=== PATIENT | female | born 1960 | race Caucasian/White ===

== ENCOUNTER 2018-04-14 10:13 | Observation (INO) ==
[2018-04-14] MEDS ORDERED: ALBUTEROL/IPRATROPIUM 3 ML NEB RESP TX STA (10:45)
[2018-04-14] MEDS ORDERED: methylPREDNISolone SOD SUC 125 MG/2 ML VIAL IV STA (10:45)
[2018-04-14] MEDS ORDERED: traZODone 50 MG TABLET PO PRN (13:46)
[2018-04-14] MEDS ORDERED: PROMETHAZINE 25 MG/1 ML VIAL IM PRN (13:46)
[2018-04-14] MEDS ORDERED: PROMETHAZINE 25 MG TABLET PO PRN (13:46)
[2018-04-14] MEDS ORDERED: NICOTINE 21 MG/24 HR PATCH TRANSDERM PRN (13:46)
[2018-04-14] MEDS ORDERED: PANTOPRAZOLE 40 MG TABLET PO SCH (14:00)
[2018-04-14 14:06] LABS: Basophils # 0.1 10*3/uL (0.0-0.2); Basophils % 0.6 % (0.0-0.8); Eosinophils # 0.5 10*3/uL (0.0-0.87); Eosinophils % 5.6 % (0.00-10.9); Hematocrit 41.5 VOL% (35.7-47.0); Hemoglobin 14.4 GM/DL (12.0-16.0); Immature Granulocytes % 0.9 %; Immature Granulocytes Absolute 0.07 #; Lymphocytes # 1.9 10*3/uL (1.4-4.0); Lymphocytes % 23.8 % (21.3-54.2); Mean Corpuscular HGB Conc 34.7 GM/DL (32-36); Mean Corpuscular Hemoglobin 35 PG (27-34); Mean Corpuscular Volume 100.5 FL (87-102); Mean Platelet Volume 10.2 FL (9.6-12.0); Monocytes # 0.7 10*3/uL (0.11-0.8); Monocytes % 8.5 % (1.7-12.7); Neutrophils # 4.8 10*3/uL (1.4-7.4); Neutrophils % 60.6 % (38.7-73.9); Platelet Count 286 T/CUMM (130-400); Red Blood Count 4.13 MC/CUMM (3.8-5.5); Red Cell Distribution Width 12.3 % (9.3-17.3)
[2018-04-14 14:24] LABS: Bilirubin,Total 0.4 MG/DL (0.2-1.0); Calcium 8.9 MG/DL (8.5-10.1); Osmolality,Calculated 256.9 MOS/KG (273-304); Potassium 3.7 MMOL/L (3.5-5.1); Thyroid Stimulating Hormone 1.97 uIU/ml (0.358-3.74); Total Protein 7.8 G/DL (6.4-8.3)
[2018-04-14] MEDS: guaiFENesin/DM ER 600-30 MG TABLET PO SCH ×2 (15:08→21:28)
[2018-04-14] MEDS: SODIUM CHLORIDE 0.9% 1,000 ML IV SCH (15:08)
[2018-04-14] MEDS: LEVOFLOXACIN 500 MG TABLET PO SCH (15:08)
[2018-04-14 15:31] LABS: Folate 14.6 NG/ML (5.4-24.0)
[2018-04-14] MEDS: ONDANSETRON 4 MG/2 ML VIAL IV PRN (15:33)
[2018-04-14] MEDS: NICOTINE 21 MG/24 HR PATCH TRANSDERM SCH (17:04)
[2018-04-14] MEDS: methylPREDNISolone SOD SUC 40 MG/1 ML VIAL IV SCH (17:04)
[2018-04-14] MEDS ORDERED: ALBUTEROL/IPRATROPIUM 3 ML NEB RESP TX SCH (19:00)
[2018-04-14] MEDS: ALBUTEROL/IPRATROPIUM 3 ML NEB RESP TX SCH ×2 (19:25→22:52)
[2018-04-14] MEDS ORDERED: ACETAMINOPHEN 325 MG TABLET PO PRN (20:38)
[2018-04-14] MEDS ORDERED: IBUPROFEN 800 MG TABLET PO PRN (20:41)
[2018-04-14] MEDS ORDERED: buPROPion 75 MG TABLET PO SCH (21:00)
[2018-04-14] MEDS ORDERED: ROSUVASTATIN 20 MG TABLET PO SCH (21:00)
[2018-04-14] MEDS: BUDESONIDE/FORMOTEROL 160-4.5 INHALER 6 GM INH SCH (21:25)
[2018-04-14] MEDS: PANTOPRAZOLE 40 MG TABLET PO SCH (21:26)
[2018-04-14] MEDS: clonazePAM 0.5 MG TABLET PO SCH (21:26)
[2018-04-14] MEDS: DOCUSATE/SENNA 50-8.6 MG TABLET PO SCH (21:27)
[2018-04-14] MEDS: BENZONATATE 100 MG CAPSULE PO SCH (21:27)
[2018-04-14] MEDS: TICAGRELOR 90 MG TABLET PO SCH (21:28)
[2018-04-14] MEDS: CARVEDILOL 6.25 MG TABLET PO SCH (21:29)
[2018-04-15] MEDS: methylPREDNISolone SOD SUC 40 MG/1 ML VIAL IV SCH ×3 (01:05→09:18)
[2018-04-15] MEDS: ALBUTEROL/IPRATROPIUM 3 ML NEB RESP TX SCH ×3 (02:26→11:10)
[2018-04-15] MEDS: SODIUM CHLORIDE 0.9% 1,000 ML IV SCH (04:05)
[2018-04-15] MEDS: ONDANSETRON 4 MG/2 ML VIAL IV PRN (06:35)
[2018-04-15 07:04] LABS: Basophils % 0.2 % (0.0-0.8); Hemoglobin 12.3 GM/DL (12.0-16.0); Immature Granulocytes % 0.9 %; Lymphocytes # 0.9 10*3/uL (1.4-4.0); Lymphocytes % 7.9 % (21.3-54.2); Mean Corpuscular HGB Conc 34.2 GM/DL (32-36); Mean Corpuscular Hemoglobin 34 PG (27-34); Mean Corpuscular Volume 100.3 FL (87-102); Mean Platelet Volume 9.9 FL (9.6-12.0); Monocytes # 0.2 10*3/uL (0.11-0.8); Monocytes % 1.8 % (1.7-12.7); Neutrophils # 10.1 10*3/uL (1.4-7.4); Neutrophils % 89.2 % (38.7-73.9); Platelet Count 267 T/CUMM (130-400); Red Blood Count 3.59 MC/CUMM (3.8-5.5); Red Cell Distribution Width 12.2 % (9.3-17.3); White Blood Count 11.3 T/CUMM (4-12)
[2018-04-15 07:29] LABS: Calcium 8.1 MG/DL (8.5-10.1); Osmolality,Calculated 267.5 MOS/KG (273-304); Potassium 3.5 MMOL/L (3.5-5.1)
[2018-04-15 07:34] LABS: Ferritin 78.9 ng/ml (8-252)
[2018-04-15 07:40] LABS: Folate 13.7 NG/ML (5.4-24.0); Vitamin B12 981 PG/ML (211-911)
[2018-04-15 08:07] LABS: Sedimentation Rate-Westergren 40 MM/HR (0-30)
[2018-04-15] MEDS ORDERED: PROMETHAZINE 25 MG/1 ML VIAL IM ONE (08:21)
[2018-04-15] MEDS ORDERED: ESTRADIOL 2 MG TABLET PO SCH (09:00)
[2018-04-15] MEDS ORDERED: hydroCHLOROthiazide 25 MG TABLET PO SCH (09:00)
[2018-04-15] MEDS ORDERED: NON-FORMULARY MEDICATION (Fluticasone/Vilanterol [Breo Ellipta 100-25 Mcg Inh] 1 PUFF) INH SCH (09:00)
[2018-04-15] MEDS ORDERED: ASPIRIN EC 81 MG TABLET PO SCH (09:00)
[2018-04-15] MEDS ORDERED: LISINOPRIL 20 MG TABLET PO SCH (09:00)
[2018-04-15] MEDS: NICOTINE 21 MG/24 HR PATCH TRANSDERM SCH (09:17)
[2018-04-15] MEDS: TICAGRELOR 90 MG TABLET PO SCH (09:17)
[2018-04-15] MEDS: guaiFENesin/DM ER 600-30 MG TABLET PO SCH (09:17)
[2018-04-15] MEDS: DOCUSATE/SENNA 50-8.6 MG TABLET PO SCH (09:17)
[2018-04-15] MEDS: PANTOPRAZOLE 40 MG TABLET PO SCH (09:17)
[2018-04-15] MEDS: clonazePAM 0.5 MG TABLET PO SCH (09:17)
[2018-04-15] MEDS: LEVOFLOXACIN 500 MG TABLET PO SCH (09:17)
[2018-04-15] MEDS: CARVEDILOL 6.25 MG TABLET PO SCH (09:19)
[2018-04-15] MEDS: BUDESONIDE/FORMOTEROL 160-4.5 INHALER 6 GM INH SCH (09:19)
[2018-04-15] MEDS: BENZONATATE 100 MG CAPSULE PO SCH (09:20)
[2018-04-15 12:40] VITALS: BP 124/71
== END 2018-04-15 13:29 | disposition home health service (06) ==
LOC: EDBD → EDUNIT# → N.ED 10:13 → N.EDINP 10:13 → N.5E 14:18
PROVIDERS: ADMIT Hospitalist; ATTEND Hospitalist

== ENCOUNTER 2020-12-31 08:33 | Inpatient (IN) ==
[2020-12-31 09:13] LABS: Basophils % 0.4 % (0.0-0.8); Eosinophils # 0.1 10*3/uL (0.0-0.87); Eosinophils % 0.9 % (0.00-10.9); Hematocrit 42.2 VOL% (35.7-47.0); Hemoglobin 15.3 GM/DL (12.0-16.0); Immature Granulocytes % 0.7 %; Immature Granulocytes Absolute 0.07 #; Lymphocytes # 1.2 10*3/uL (1.4-4.0); Lymphocytes % 12.1 % (21.3-54.2); Mean Corpuscular HGB Conc 36.3 GM/DL (32-36); Mean Corpuscular Volume 98.4 FL (87-102); Mean Platelet Volume 9.9 FL (9.6-12.0); Monocytes % 6.1 % (1.7-12.7); Neutrophils % 79.8 % (38.7-73.9); Platelet Count 219 T/CUMM (130-400); Red Blood Count 4.29 MC/CUMM (3.8-5.5); Red Cell Distribution Width 12.7 % (9.3-17.3); White Blood Count 9.9 T/CUMM (4-12)
[2020-12-31 09:28] LABS: Albumin 4.5 G/DL (3.4-5.0); Bilirubin,Total 0.5 MG/DL (0.20-1.00); Osmolality,Calculated 239.2 MOS/KG (273-304); Potassium 4.1 MMOL/L (3.5-5.1); Total Protein 7.8 G/DL (6.4-8.2)
[2020-12-31 09:58] LABS: Bacteria,Urine Occasional /HPF (Few); Bilirubin,Urine Negative (Negative); Blood, Urine Moderate mg/dL (Negative); Glucose,Urine (UA) Negative (Negative); Hyaline Casts,Urine 10 /LPF (0-3); Ketones,Urine Negative (Negative); Mucus,Urine Occasional /LPF (Occasional); Nitrite,Urine Negative (Negative); Protein,Urine Negative; RBC,Urine 2 /HPF (0-4); Squamous Epithelial Cell,Urine Occasional /HPF (0-10); Urine Appearance CLEAR (Clear); Urine Color Yellow (Yellow); Urine Urobilinogen < 2.0 EU/DL (0.2-1.0)
[2020-12-31 10:06] LABS: Barbiturates Screen,Urine Negative (Negative); Benzodiazepines Screen,Urine Negative (Negative); Cannabinoid Screen,Urine Negative (Negative); Opiate Screen,Urine Negative (Negative); Phencyclidine Screen,Urine Negative (Negative)
[2020-12-31] MEDS ORDERED: SODIUM CHLORIDE 0.9% 1,000 ML IV STA (10:09)
[2020-12-31] MEDS ORDERED: methylPREDNISolone SOD SUC 125 MG/2 ML VIAL IV STA (10:09)
[2020-12-31] MEDS ORDERED: ALBUTEROL/IPRATROPIUM 3 ML NEB RESP TX STA (10:09)
[2020-12-31] MEDS ORDERED: KETOROLAC 30 MG/1 ML VIAL IV STA (10:09)
[2020-12-31] MEDS ORDERED: LEVOFLOXACIN INJ 500 MG/100 ML PREMIX IV STA (10:23)
[2020-12-31] MEDS ORDERED: hydrALAZINE 20 MG/1 ML VIAL IV PRN (10:37)
[2020-12-31] MEDS ORDERED: LACTULOSE 20 GM/30 ML UDCUP PO PRN (12:21)
[2020-12-31] MEDS ORDERED: ALBUTEROL/IPRATROPIUM 3 ML NEB RESP TX PRN (12:21)
[2020-12-31] MEDS ORDERED: DEXTROSE 50% 25 GM/50 ML VIAL IV PRN (12:21)
[2020-12-31] MEDS ORDERED: SIMETHICONE CHEW 125 MG TABLET PO PRN (12:21)
[2020-12-31] MEDS ORDERED: GLUCAGON 1 MG VIAL IM PRN (12:21)
[2020-12-31] MEDS: ALBUTEROL/IPRATROPIUM 3 ML NEB RESP TX SCH ×3 (14:07→23:00)
[2020-12-31] MEDS: ASPIRIN EC 81 MG TABLET PO SCH (15:05)
[2020-12-31] MEDS: ROSUVASTATIN 20 MG TABLET PO SCH (15:05)
[2020-12-31] MEDS: SODIUM CHLORIDE 0.9% 1,000 ML IV SCH (15:05)
[2020-12-31] MEDS: ENOXAPARIN 40 MG/0.4 ML SYRINGE SUBCUT SCH (15:05)
[2020-12-31] MEDS: carvediloL 6.25 MG TABLET PO SCH (15:05)
[2020-12-31] MEDS: CLOPIDOGREL 75 MG TABLET PO SCH (15:06)
[2020-12-31] MEDS: PANTOPRAZOLE 40 MG TABLET PO SCH (15:06)
[2020-12-31] MEDS: lisinopriL 20 MG TABLET PO SCH (15:06)
[2020-12-31] MEDS: KETOROLAC 30 MG/1 ML VIAL IV PRN ×2 (16:50→22:44)
[2020-12-31 17:17] LABS: Calcium 9.1 MG/DL (8.5-10.1); Osmolality,Calculated 248.6 MOS/KG (273-304)
[2020-12-31] MEDS: BUDESONIDE/FORMOTEROL 80-4.5 INHALER 6.9 GM INH SCH (17:21)
[2020-12-31] MEDS: methylPREDNISolone SOD SUC 40 MG/1 ML VIAL IV SCH ×2 (17:21→18:06)
[2020-12-31] MEDS: LEVOFLOXACIN INJ 750 MG/150 ML PREMIX IV SCH (17:21)
[2020-12-31] MEDS: NICOTINE 21 MG/24 HR PATCH TRANSDERM SCH (18:04)
[2020-12-31] MEDS: clonazePAM 0.5 MG TABLET PO PRN (18:05)
[2020-12-31] MEDS: METHOCARBAMOL 750 MG TABLET PO PRN (18:06)
[2020-12-31] MEDS: ONDANSETRON 4 MG/2 ML VIAL IV PRN (19:23)
[2020-12-31 20:57] LABS: Calcium 8.6 MG/DL (8.5-10.1); Osmolality,Calculated 253.4 MOS/KG (273-304); Potassium 4.2 MMOL/L (3.5-5.1)
[2021-01-01] MEDS: METHOCARBAMOL 750 MG TABLET PO PRN ×3 (01:06→19:31)
[2021-01-01] MEDS: methylPREDNISolone SOD SUC 40 MG/1 ML VIAL IV SCH ×4 (01:07→18:17)
[2021-01-01] MEDS: SODIUM CHLORIDE 0.9% 1,000 ML IV SCH ×4 (01:12→23:15)
[2021-01-01 01:47] LABS: Calcium 8.3 MG/DL (8.5-10.1); Osmolality,Calculated 254.4 MOS/KG (273-304); Potassium 3.5 MMOL/L (3.5-5.1)
[2021-01-01] MEDS: ALBUTEROL/IPRATROPIUM 3 ML NEB RESP TX SCH ×6 (02:50→23:00)
[2021-01-01 06:24] LABS: Basophils % 0.2 % (0.0-0.8); Hematocrit 34.5 VOL% (35.7-47.0); Hemoglobin 12.4 GM/DL (12.0-16.0); Immature Granulocytes Absolute 0.12 #; Lymphocytes # 0.5 10*3/uL (1.4-4.0); Lymphocytes % 4.3 % (21.3-54.2); Mean Corpuscular HGB Conc 35.9 GM/DL (32-36); Mean Corpuscular Volume 100.3 FL (87-102); Mean Platelet Volume 10.1 FL (9.6-12.0); Monocytes % 3.8 % (1.7-12.7); Neutrophils % 90.7 % (38.7-73.9); Platelet Count 177 T/CUMM (130-400); Red Blood Count 3.44 MC/CUMM (3.8-5.5); Red Cell Distribution Width 13.1 % (9.3-17.3); White Blood Count 12.4 T/CUMM (4-12)
[2021-01-01] MEDS: clonazePAM 0.5 MG TABLET PO PRN ×2 (06:56→18:35)
[2021-01-01] MEDS: KETOROLAC 30 MG/1 ML VIAL IV PRN ×3 (06:57→19:31)
[2021-01-01 07:01] LABS: Albumin 3.3 G/DL (3.4-5.0); Bilirubin,Total 1.3 MG/DL (0.20-1.00); Calcium 8.7 MG/DL (8.5-10.1); Osmolality,Calculated 262.7 MOS/KG (273-304); Potassium 3.2 MMOL/L (3.5-5.1); Total Protein 6.3 G/DL (6.4-8.2)
[2021-01-01 07:15] LABS: Band Neutrophils 1 % (0-10); Lymphocytes 5 % (20-55); Platelet Estimate Normal; Segmented Neutrophils 91 % (50-85); Total Cells Counted 100
[2021-01-01] MEDS: carvediloL 6.25 MG TABLET PO SCH (09:04)
[2021-01-01] MEDS: ASPIRIN EC 81 MG TABLET PO SCH (09:04)
[2021-01-01] MEDS: ROSUVASTATIN 20 MG TABLET PO SCH (09:05)
[2021-01-01] MEDS: OMEGA 3 ACID ETHYL ESTERS 1 GM CAPSULE PO SCH (09:05)
[2021-01-01 09:06] LABS: Calcium 8.5 MG/DL (8.5-10.1); Osmolality,Calculated 259.9 MOS/KG (273-304); Potassium 3.3 MMOL/L (3.5-5.1)
[2021-01-01] MEDS: CLOPIDOGREL 75 MG TABLET PO SCH (09:06)
[2021-01-01] MEDS: NICOTINE 21 MG/24 HR PATCH TRANSDERM SCH (09:06)
[2021-01-01] MEDS: lisinopriL 20 MG TABLET PO SCH (09:06)
[2021-01-01] MEDS: PANTOPRAZOLE 40 MG TABLET PO SCH (09:06)
[2021-01-01] MEDS: BUDESONIDE/FORMOTEROL 80-4.5 INHALER 6.9 GM INH SCH (09:10)
[2021-01-01] MEDS: ENOXAPARIN 40 MG/0.4 ML SYRINGE SUBCUT SCH (12:56)
[2021-01-01] MEDS: LEVOFLOXACIN INJ 750 MG/150 ML PREMIX IV SCH (13:04)
[2021-01-01] MEDS ORDERED: DEXTROMETHORPHAN ER 6 MG/ML 90 ML/BOTTLE PO PRN (15:58)
[2021-01-01] MEDS: DOCUSATE SODIUM 100 MG CAPSULE PO PRN (18:35)
[2021-01-01] MEDS: ONDANSETRON 4 MG/2 ML VIAL IV PRN (18:39)
[2021-01-02] MEDS: methylPREDNISolone SOD SUC 40 MG/1 ML VIAL IV SCH ×2 (00:26→06:03)
[2021-01-02] MEDS: ALBUTEROL/IPRATROPIUM 3 ML NEB RESP TX SCH ×6 (02:50→23:00)
[2021-01-02] MEDS: clonazePAM 0.5 MG TABLET PO PRN ×2 (06:08→17:53)
[2021-01-02] MEDS: KETOROLAC 30 MG/1 ML VIAL IV PRN ×2 (06:11→20:26)
[2021-01-02 08:51] LABS: Calcium 8.5 MG/DL (8.5-10.1); Osmolality,Calculated 269.2 MOS/KG (273-304); Potassium 3.4 MMOL/L (3.5-5.1)
[2021-01-02] MEDS: ASPIRIN EC 81 MG TABLET PO SCH (09:18)
[2021-01-02] MEDS: ROSUVASTATIN 20 MG TABLET PO SCH (09:19)
[2021-01-02] MEDS: carvediloL 6.25 MG TABLET PO SCH (09:19)
[2021-01-02] MEDS: OMEGA 3 ACID ETHYL ESTERS 1 GM CAPSULE PO SCH (09:19)
[2021-01-02] MEDS: CLOPIDOGREL 75 MG TABLET PO SCH (09:20)
[2021-01-02] MEDS: NICOTINE 21 MG/24 HR PATCH TRANSDERM SCH (09:20)
[2021-01-02] MEDS: BUDESONIDE/FORMOTEROL 80-4.5 INHALER 6.9 GM INH SCH (09:21)
[2021-01-02] MEDS: lisinopriL 20 MG TABLET PO SCH (09:21)
[2021-01-02] MEDS: PANTOPRAZOLE 40 MG TABLET PO SCH (09:21)
[2021-01-02] MEDS: predniSONE 20 MG TABLET PO SCH ×2 (09:51→20:26)
[2021-01-02] MEDS: SODIUM CHLORIDE 0.9% 1,000 ML IV SCH ×3 (09:51→21:39)
[2021-01-02] MEDS: ENOXAPARIN 40 MG/0.4 ML SYRINGE SUBCUT SCH (12:50)
[2021-01-02] MEDS: DOCUSATE SODIUM 100 MG CAPSULE PO PRN (12:51)
[2021-01-02] MEDS: LEVOFLOXACIN INJ 750 MG/150 ML PREMIX IV SCH (12:52)
[2021-01-02] MEDS: METHOCARBAMOL 750 MG TABLET PO PRN (20:26)
[2021-01-03] MEDS: ALBUTEROL/IPRATROPIUM 3 ML NEB RESP TX SCH ×3 (03:00→10:31)
[2021-01-03] MEDS: KETOROLAC 30 MG/1 ML VIAL IV PRN ×2 (03:46→14:07)
[2021-01-03] MEDS: SODIUM CHLORIDE 0.9% 1,000 ML IV SCH (03:47)
[2021-01-03 05:29] LABS: Basophils % 0.5 % (0.0-0.8); Eosinophils % 0.2 % (0.00-10.9); Hematocrit 34.3 VOL% (35.7-47.0); Hemoglobin 11.7 GM/DL (12.0-16.0); Immature Granulocytes % 1.8 %; Immature Granulocytes Absolute 0.15 #; Lymphocytes # 1.7 10*3/uL (1.4-4.0); Lymphocytes % 20.4 % (21.3-54.2); Mean Corpuscular HGB Conc 34.1 GM/DL (32-36); Mean Corpuscular Volume 105.9 FL (87-102); Monocytes % 4.6 % (1.7-12.7); Neutrophils % 72.5 % (38.7-73.9); Platelet Count 170 T/CUMM (130-400); Red Blood Count 3.24 MC/CUMM (3.8-5.5); Red Cell Distribution Width 13.6 % (9.3-17.3); White Blood Count 8.3 T/CUMM (4-12)
[2021-01-03 06:12] LABS: Calcium 7.9 MG/DL (8.5-10.1); Osmolality,Calculated 277.4 MOS/KG (273-304); Potassium 3.2 MMOL/L (3.5-5.1)
[2021-01-03] MEDS: clonazePAM 0.5 MG TABLET PO PRN (06:27)
[2021-01-03] MEDS: ASPIRIN EC 81 MG TABLET PO SCH (09:32)
[2021-01-03] MEDS: carvediloL 6.25 MG TABLET PO SCH (09:32)
[2021-01-03] MEDS: lisinopriL 20 MG TABLET PO SCH (09:33)
[2021-01-03] MEDS: OMEGA 3 ACID ETHYL ESTERS 1 GM CAPSULE PO SCH (09:33)
[2021-01-03] MEDS: predniSONE 20 MG TABLET PO SCH (09:33)
[2021-01-03] MEDS: ROSUVASTATIN 20 MG TABLET PO SCH (09:33)
[2021-01-03] MEDS: PANTOPRAZOLE 40 MG TABLET PO SCH (09:33)
[2021-01-03] MEDS: CLOPIDOGREL 75 MG TABLET PO SCH (09:33)
[2021-01-03] MEDS: BUDESONIDE/FORMOTEROL 80-4.5 INHALER 6.9 GM INH SCH (09:38)
[2021-01-03] MEDS: NICOTINE 21 MG/24 HR PATCH TRANSDERM SCH (11:19)
[2021-01-03] MEDS ORDERED: POTASSIUM CHLORIDE 20 MEQ TABLET PO ONE (11:23)
[2021-01-03] MEDS: ENOXAPARIN 40 MG/0.4 ML SYRINGE SUBCUT SCH (11:58)
[2021-01-03 12:18] VITALS: BP 106/67
[2021-01-03] MEDS: LEVOFLOXACIN INJ 750 MG/150 ML PREMIX IV SCH (12:19)
== END 2021-01-03 15:53 | disposition home health service (06) | DRG 140 ==
LOC: EDUNIT# → N.ED 08:33 → N.EDINP 12:21 → SUATTDRO 12:21 → N.3E 15:35
PROVIDERS: ADMIT Internal Medicine; ATTEND Emergency Medicine

== ENCOUNTER 2021-04-01 08:28 | Observation (INO) ==
[2021-04-01] MEDS ORDERED: PANTOPRAZOLE 40 MG VIAL IV STA (08:57)
[2021-04-01 09:19] LABS: Basophils % 0.4 % (0.0-0.8); Eosinophils % 0.4 % (0.00-10.9); Hematocrit 38.5 VOL% (35.7-47.0); Hemoglobin 14.1 GM/DL (12.0-16.0); Immature Granulocytes % 1.2 %; Immature Granulocytes Absolute 0.06 #; Lymphocytes % 18.9 % (21.3-54.2); Mean Corpuscular HGB Conc 36.6 GM/DL (32-36); Mean Platelet Volume 9.1 FL (9.6-12.0); Monocytes % 9.8 % (1.7-12.7); Neutrophils % 69.3 % (38.7-73.9); Platelet Count 193 T/CUMM (130-400); Red Blood Count 3.85 MC/CUMM (3.8-5.5)
[2021-04-01 09:59] LABS: Albumin 3.8 G/DL (3.4-5.0); Bilirubin,Total 0.6 MG/DL (0.20-1.00); Calcium 8.8 MG/DL (8.5-10.1); Osmolality,Calculated 253.1 MOS/KG (273-304); Potassium 4.1 MMOL/L (3.5-5.1); Total Protein 6.9 G/DL (6.4-8.2)
[2021-04-01] MEDS ORDERED: SODIUM CHLORIDE 0.9% 1,000 ML IV STA (10:26)
[2021-04-01] MEDS ORDERED: lisinopriL 10 MG TABLET PO STA (11:27)
[2021-04-01] MEDS: ALBUTEROL/IPRATROPIUM 3 ML NEB RESP TX SCH ×4 (12:40→23:55)
[2021-04-01] MEDS: SODIUM CHLORIDE 0.9% 1,000 ML IV SCH ×2 (12:47→20:51)
[2021-04-01] MEDS: ONDANSETRON 4 MG/2 ML VIAL IV PRN ×2 (12:49→18:48)
[2021-04-01 13:07] LABS: Bacteria,Urine Occasional /HPF (Few); Bilirubin,Urine Negative (Negative); Blood, Urine Moderate mg/dL (Negative); Glucose,Urine (UA) Negative (Negative); Ketones,Urine 5 mg/dL (Negative); Mucus,Urine Occasional /LPF (Occasional); Nitrite,Urine Negative (Negative); Protein,Urine Negative; RBC,Urine 7 /HPF (0-4); Squamous Epithelial Cell,Urine Occasional /HPF (0-10); Urine Appearance CLEAR (Clear); Urine Color Yellow (Yellow); Urine Specific Gravity 1.013 (1.001-1.035); Urine Urobilinogen < 2.0 EU/DL (0.2-1.0)
[2021-04-01] MEDS: methylPREDNISolone SOD SUC 125 MG/2 ML VIAL IV SCH ×2 (15:03→18:49)
[2021-04-01] MEDS: cefTRIAXone 1,000 MG in SODIUM CHLORIDE 0.9% 100 ML IV SCH (15:03)
[2021-04-01 16:12] LABS: Hematocrit 38.6 VOL% (35.7-47.0); Hemoglobin 13.7 GM/DL (12.0-16.0)
[2021-04-01 18:34] LABS: Hematocrit 36.8 VOL% (35.7-47.0); Hemoglobin 13.1 GM/DL (12.0-16.0)
[2021-04-01] MEDS: clonazePAM 0.5 MG TABLET PO PRN (19:43)
[2021-04-01] MEDS: PANTOPRAZOLE 40 MG VIAL IV SCH (20:44)
[2021-04-02] MEDS: methylPREDNISolone SOD SUC 125 MG/2 ML VIAL IV SCH ×2 (01:11→12:56)
[2021-04-02] MEDS: ALBUTEROL/IPRATROPIUM 3 ML NEB RESP TX SCH ×6 (03:53→23:20)
[2021-04-02 05:53] LABS: Basophils % 0.1 % (0.0-0.8); Hemoglobin 12.5 GM/DL (12.0-16.0); Immature Granulocytes % 0.8 %; Immature Granulocytes Absolute 0.06 #; Lymphocytes # 0.5 10*3/uL (1.4-4.0); Lymphocytes % 6.7 % (21.3-54.2); Mean Corpuscular HGB Conc 34.7 GM/DL (32-36); Mean Corpuscular Volume 104.3 FL (87-102); Mean Platelet Volume 9.7 FL (9.6-12.0); Monocytes % 1.4 % (1.7-12.7); Platelet Count 172 T/CUMM (130-400); Red Blood Count 3.45 MC/CUMM (3.8-5.5); Red Cell Distribution Width 12.1 % (9.3-17.3); White Blood Count 7.4 T/CUMM (4-12)
[2021-04-02 06:07] LABS: Albumin 3.1 G/DL (3.4-5.0); Bilirubin,Total 0.4 MG/DL (0.20-1.00); Calcium 8.5 MG/DL (8.5-10.1); Osmolality,Calculated 259.8 MOS/KG (273-304); Potassium 3.5 MMOL/L (3.5-5.1); Total Protein 6.2 G/DL (6.4-8.2)
[2021-04-02 06:23] LABS: Anisocytosis 2+; Band Neutrophils 8 % (0-10); Lymphocytes 5 % (20-55); Macrocytosis 1+; Platelet Estimate Normal; Segmented Neutrophils 85 % (50-85); Spherocytes Few; Total Cells Counted 100
[2021-04-02] MEDS ORDERED: LACTATED RINGERS 1,000 ML IV SCH (08:00)
[2021-04-02] MEDS ORDERED: lisinopriL 20 MG TABLET PO SCH (09:00)
[2021-04-02] MEDS ORDERED: PANTOPRAZOLE 40 MG VIAL IV SCH (09:00)
[2021-04-02] MEDS ORDERED: propofoL 200 MG/20 ML VIAL IV ONE ×2 (09:13→09:21)
[2021-04-02] MEDS ORDERED: GLYCOPYRROLATE 0.4 MG/2 ML VIAL ONE (09:13)
[2021-04-02] MEDS ORDERED: LIDOCAINE 2% 5 ML VIAL ONE (09:13)
[2021-04-02] MEDS: ROSUVASTATIN 20 MG TABLET PO SCH (10:55)
[2021-04-02] MEDS: carvediloL 6.25 MG TABLET PO SCH (10:55)
[2021-04-02] MEDS: clonazePAM 0.5 MG TABLET PO PRN ×2 (10:55→19:32)
[2021-04-02] MEDS: lisinopriL 10 MG TABLET PO SCH (10:55)
[2021-04-02] MEDS: PANTOPRAZOLE 40 MG VIAL IV SCH ×2 (10:58→20:53)
[2021-04-02] MEDS: SODIUM CHLORIDE 0.9% 1,000 ML IV SCH ×3 (12:56→21:09)
[2021-04-02] MEDS: methylPREDNISolone SOD SUC 40 MG/1 ML VIAL IV SCH ×2 (13:55→20:51)
[2021-04-02] MEDS: cefTRIAXone 1,000 MG in SODIUM CHLORIDE 0.9% 100 ML IV SCH (20:53)
[2021-04-03] MEDS: ONDANSETRON 4 MG/2 ML VIAL IV PRN ×3 (02:56→17:20)
[2021-04-03] MEDS: ALBUTEROL/IPRATROPIUM 3 ML NEB RESP TX SCH ×4 (03:18→15:01)
[2021-04-03] MEDS: methylPREDNISolone SOD SUC 40 MG/1 ML VIAL IV SCH ×3 (05:23→20:57)
[2021-04-03 05:30] LABS: Basophils % 0.1 % (0.0-0.8); Hematocrit 34.1 VOL% (35.7-47.0); Hemoglobin 11.6 GM/DL (12.0-16.0); Immature Granulocytes % 1.3 %; Immature Granulocytes Absolute 0.14 #; Lymphocytes # 0.9 10*3/uL (1.4-4.0); Lymphocytes % 8.3 % (21.3-54.2); Mean Corpuscular Volume 106.6 FL (87-102); Mean Platelet Volume 9.8 FL (9.6-12.0); Monocytes % 6.6 % (1.7-12.7); Neutrophils % 83.7 % (38.7-73.9); Platelet Count 198 T/CUMM (130-400); Red Cell Distribution Width 12.2 % (9.3-17.3)
[2021-04-03 05:52] LABS: Albumin 3.2 G/DL (3.4-5.0); Bilirubin,Total 0.7 MG/DL (0.20-1.00); Calcium 8.8 MG/DL (8.5-10.1); Osmolality,Calculated 266.4 MOS/KG (273-304); Potassium 3.7 MMOL/L (3.5-5.1); Total Protein 6.4 G/DL (6.4-8.2)
[2021-04-03] MEDS: clonazePAM 0.5 MG TABLET PO PRN ×2 (06:22→20:05)
[2021-04-03] MEDS: SODIUM CHLORIDE 0.9% 1,000 ML IV SCH ×3 (07:23→19:01)
[2021-04-03] MEDS: carvediloL 6.25 MG TABLET PO SCH (10:50)
[2021-04-03] MEDS: ROSUVASTATIN 20 MG TABLET PO SCH (10:50)
[2021-04-03] MEDS: lisinopriL 10 MG TABLET PO SCH (10:51)
[2021-04-03] MEDS: PANTOPRAZOLE 40 MG VIAL IV SCH ×2 (10:51→20:57)
[2021-04-03] MEDS ORDERED: buPROPion SR 100 MG TABLET PO ONE (17:38)
[2021-04-03] MEDS: ALBUTEROL 2.5 MG/3 ML NEB RESP TX SCH ×2 (19:30→23:00)
[2021-04-03] MEDS: rOPINIRole 0.25 MG TABLET PO SCH (20:50)
[2021-04-03] MEDS: cefTRIAXone 2,000 MG in SODIUM CHLORIDE 0.9% 100 ML IV SCH (20:56)
[2021-04-04] MEDS: ALBUTEROL 2.5 MG/3 ML NEB RESP TX SCH ×6 (02:25→23:54)
[2021-04-04] MEDS: ONDANSETRON 4 MG/2 ML VIAL IV PRN (02:26)
[2021-04-04] MEDS: SODIUM CHLORIDE 0.9% 1,000 ML IV SCH ×3 (05:00→20:27)
[2021-04-04] MEDS: methylPREDNISolone SOD SUC 40 MG/1 ML VIAL IV SCH ×3 (05:00→20:21)
[2021-04-04 05:30] LABS: Basophils % 0.2 % (0.0-0.8); Hematocrit 32.7 VOL% (35.7-47.0); Immature Granulocytes % 3.2 %; Lymphocytes # 0.8 10*3/uL (1.4-4.0); Lymphocytes % 8.6 % (21.3-54.2); Mean Corpuscular HGB Conc 33.6 GM/DL (32-36); Mean Corpuscular Volume 107.6 FL (87-102); Mean Platelet Volume 10.6 FL (9.6-12.0); Monocytes % 6.5 % (1.7-12.7); Neutrophils % 81.5 % (38.7-73.9); Platelet Count 201 T/CUMM (130-400); Red Blood Count 3.04 MC/CUMM (3.8-5.5); Red Cell Distribution Width 12.5 % (9.3-17.3); White Blood Count 9.3 T/CUMM (4-12)
[2021-04-04 05:48] LABS: Bilirubin,Total 0.4 MG/DL (0.20-1.00); Calcium 8.4 MG/DL (8.5-10.1); Osmolality,Calculated 268.2 MOS/KG (273-304); Potassium 3.9 MMOL/L (3.5-5.1); Total Protein 5.8 G/DL (6.4-8.2)
[2021-04-04 05:50] LABS: Folate 9.61 NG/ML (5.38-24.0)
[2021-04-04] MEDS: clonazePAM 0.5 MG TABLET PO PRN ×2 (06:52→17:44)
[2021-04-04] MEDS: NICOTINE 14 MG/24 HR PATCH TRANSDERM SCH (09:39)
[2021-04-04] MEDS: carvediloL 6.25 MG TABLET PO SCH ×2 (09:39→17:10)
[2021-04-04] MEDS: lisinopriL 10 MG TABLET PO SCH (09:39)
[2021-04-04] MEDS: buPROPion SR 100 MG TABLET PO SCH (09:39)
[2021-04-04] MEDS: ROSUVASTATIN 20 MG TABLET PO SCH (09:39)
[2021-04-04] MEDS: PANTOPRAZOLE 40 MG VIAL IV SCH ×2 (09:40→20:22)
[2021-04-04] MEDS ORDERED: BISACODYL 5 MG TABLET PO ONE (12:00)
[2021-04-04] MEDS ORDERED: POLYETHYLENE GLYCOL POWDER 255 GM BOTTLE PO ONE (18:00)
[2021-04-04] MEDS: cefTRIAXone 2,000 MG in SODIUM CHLORIDE 0.9% 100 ML IV SCH (20:24)
[2021-04-04] MEDS: rOPINIRole 0.25 MG TABLET PO SCH (20:25)
[2021-04-05] MEDS ORDERED: MORPHINE 2 MG/1 ML SYRINGE IV ONE (02:16)
[2021-04-05] MEDS: ONDANSETRON 4 MG/2 ML VIAL IV PRN ×2 (02:31→11:23)
[2021-04-05] MEDS: ALBUTEROL 2.5 MG/3 ML NEB RESP TX SCH ×6 (03:02→23:18)
[2021-04-05] MEDS: methylPREDNISolone SOD SUC 40 MG/1 ML VIAL IV SCH ×2 (04:51→13:50)
[2021-04-05] MEDS: clonazePAM 0.5 MG TABLET PO PRN ×2 (04:52→18:30)
[2021-04-05] MEDS: SODIUM CHLORIDE 0.9% 1,000 ML IV SCH ×4 (04:52→14:34)
[2021-04-05 06:55] LABS: Basophils % 0.4 % (0.0-0.8); Hematocrit 36.5 VOL% (35.7-47.0); Immature Granulocytes % 5.5 %; Immature Granulocytes Absolute 0.46 #; Lymphocytes # 1.1 10*3/uL (1.4-4.0); Lymphocytes % 12.8 % (21.3-54.2); Mean Corpuscular HGB Conc 32.9 GM/DL (32-36); Mean Corpuscular Volume 108.6 FL (87-102); Mean Platelet Volume 10.1 FL (9.6-12.0); Monocytes % 5.8 % (1.7-12.7); Neutrophils % 75.5 % (38.7-73.9); Platelet Count 217 T/CUMM (130-400); Red Blood Count 3.36 MC/CUMM (3.8-5.5); Red Cell Distribution Width 12.3 % (9.3-17.3); White Blood Count 8.4 T/CUMM (4-12)
[2021-04-05 07:08] LABS: INR 0.9; PT Patient Result 10.3 SECS (10.5-12.0)
[2021-04-05 07:16] LABS: Hypochromasia 1+; Lymphocytes 14 % (20-55); Microcytosis 1+; Platelet Estimate Adequate; Segmented Neutrophils 82 % (50-85); Total Cells Counted 100
[2021-04-05 07:18] LABS: Alanine Aminotransferase 19 U/L (13-56); Albumin 3.3 G/DL (3.4-5.0); Alkaline Phosphatase 88 U/L (45-117); Aspartate Amino Transferase 11 U/L (0-37); Bilirubin,Total < 0.39 MG/DL (0.20-1.00); Blood Urea Nitrogen 6 MG/DL (7-18); Calcium 8.6 MG/DL (8.5-10.1); Carbon Dioxide 31 MMOL/L (21-32); Estimated Glom Filtration Rate 91 ML/MIN; Glucose 128 MG/DL (74-106); Osmolality,Calculated 274.7 MOS/KG (273-304); Potassium 3.2 MMOL/L (3.5-5.1); Sodium 138 MMOL/L (136-145); Total Protein 6.4 G/DL (6.4-8.2)
[2021-04-05] MEDS ORDERED: propofoL 200 MG/20 ML VIAL IV ONE ×2 (09:15→09:31)
[2021-04-05] MEDS ORDERED: LIDOCAINE 2% 5 ML VIAL ONE (09:15)
[2021-04-05] MEDS ORDERED: hydrALAZINE 20 MG/1 ML VIAL ONE (09:25)
[2021-04-05] MEDS ORDERED: LACTATED RINGERS 1,000 ML IV SCH (10:30)
[2021-04-05] MEDS: ROSUVASTATIN 20 MG TABLET PO SCH (10:56)
[2021-04-05] MEDS: carvediloL 6.25 MG TABLET PO SCH ×2 (10:56→17:06)
[2021-04-05] MEDS: lisinopriL 10 MG TABLET PO SCH (10:56)
[2021-04-05] MEDS: buPROPion SR 100 MG TABLET PO SCH (10:56)
[2021-04-05] MEDS: NICOTINE 14 MG/24 HR PATCH TRANSDERM SCH (11:00)
[2021-04-05] MEDS: PANTOPRAZOLE 40 MG VIAL IV SCH ×2 (11:03→20:50)
[2021-04-05] MEDS: POTASSIUM CHLORIDE 20 MEQ TABLET PO PRN ×2 (14:00→17:07)
[2021-04-05] MEDS: rOPINIRole 0.25 MG TABLET PO SCH (20:47)
[2021-04-05] MEDS: cefTRIAXone 2,000 MG in SODIUM CHLORIDE 0.9% 100 ML IV SCH (20:50)
[2021-04-06] MEDS ORDERED: MORPHINE 2 MG/1 ML SYRINGE IV ONE (00:03)
[2021-04-06] MEDS ORDERED: methylPREDNISolone SOD SUC 40 MG/1 ML VIAL IV SCH (03:00)
[2021-04-06] MEDS: clonazePAM 0.5 MG TABLET PO PRN ×2 (03:13→09:25)
[2021-04-06] MEDS: SODIUM CHLORIDE 0.9% 1,000 ML IV SCH ×2 (03:16→10:45)
[2021-04-06] MEDS: ALBUTEROL 2.5 MG/3 ML NEB RESP TX SCH ×3 (03:27→11:23)
[2021-04-06 06:00] LABS: Hemoglobin 11.8 GM/DL (12.0-16.0)
[2021-04-06 06:36] LABS: Calcium 8.4 MG/DL (8.5-10.1); Osmolality,Calculated 271.8 MOS/KG (273-304); Potassium 3.4 MMOL/L (3.5-5.1)
[2021-04-06] MEDS: ONDANSETRON 4 MG/2 ML VIAL IV PRN ×2 (07:54→13:12)
[2021-04-06] MEDS: ROSUVASTATIN 20 MG TABLET PO SCH (09:25)
[2021-04-06] MEDS: lisinopriL 10 MG TABLET PO SCH (09:25)
[2021-04-06] MEDS: NICOTINE 14 MG/24 HR PATCH TRANSDERM SCH (09:26)
[2021-04-06] MEDS: buPROPion SR 100 MG TABLET PO SCH (09:26)
[2021-04-06] MEDS: PANTOPRAZOLE 40 MG VIAL IV SCH (09:27)
[2021-04-06] MEDS: carvediloL 6.25 MG TABLET PO SCH (09:28)
[2021-04-06] MEDS: POTASSIUM CHLORIDE 20 MEQ TABLET PO PRN ×3 (11:34→13:13)
[2021-04-06 12:00] VITALS: BP 150/78
== END 2021-04-06 15:31 | disposition home health service (06) ==
LOC: N.EDINP 08:28 → N.ED 08:28 → N.EDINP 15:52 → N.5E 15:59
PROVIDERS: ADMIT Hospitalist; ATTEND Hospitalist

== ENCOUNTER 2021-11-12 21:20 | Inpatient (IN) ==
[2021-11-12] MEDS ORDERED: ALBUTEROL 2.5 MG/3 ML NEB RESP TX STA ×2 (21:45→23:59)
[2021-11-12 22:08] LABS: Basophils % 0.4 % (0.0-0.8); Hemoglobin 12.7 GM/DL (12.0-16.0); Immature Granulocytes % 1.6 %; Immature Granulocytes Absolute 0.12 #; Lymphocytes # 0.6 10*3/uL (1.4-4.0); Lymphocytes % 8.7 % (21.3-54.2); Mean Corpuscular HGB Conc 34.3 GM/DL (32-36); Mean Corpuscular Volume 101.4 FL (87-102); Mean Platelet Volume 9.6 FL (9.6-12.0); Monocytes # 0.4 10*3/uL (0.11-0.8); Monocytes % 5.4 % (1.7-12.7); Neutrophils % 83.9 % (38.7-73.9); Platelet Count 222 T/CUMM (130-400); Red Blood Count 3.65 MC/CUMM (3.8-5.5); Red Cell Distribution Width 12.6 % (9.3-17.3); White Blood Count 7.4 T/CUMM (4-12)
[2021-11-12 22:15] LABS: Bilirubin,Urine Negative (Negative); Blood, Urine Small mg/dL (Negative); Glucose,Urine (UA) Negative (Negative); Ketones,Urine Negative (Negative); Nitrite,Urine Negative (Negative); Protein,Urine Negative (Negative); Urine Appearance Clear (Clear); Urine Color Yellow (Yellow); Urine Urobilinogen 0.2 eU/dL (<2.0); Urine pH 5.5 (4.5-8.0)
[2021-11-12 22:20] LABS: Bacteria,Urine Occasional /HPF (Few); RBC,Urine 1 /HPF (0-4); Squamous Epithelial Cell,Urine Occasional /HPF (0-10)
[2021-11-12 22:30] LABS: Alanine Aminotransferase 27 U/L (13-56); Albumin 3.7 G/DL (3.4-5.0); Alkaline Phosphatase 135 U/L (45-117); Aspartate Amino Transferase 16 U/L (0-37); Bilirubin,Total < 0.39 MG/DL (0.20-1.00); Blood Urea Nitrogen 7 MG/DL (7-18); Calcium 8.8 MG/DL (8.5-10.1); Carbon Dioxide 25 MMOL/L (21-32); Chloride 103 MMOL/L (98-107); Glucose 132 MG/DL (74-106); Osmolality,Calculated 269.1 MOS/KG (273-304); Potassium 4.1 MMOL/L (3.5-5.1); Sodium 135 MMOL/L (136-145); Total Protein 6.9 G/DL (6.4-8.2)
[2021-11-12] MEDS ORDERED: KETOROLAC 30 MG/1 ML VIAL IV STA (22:46)
[2021-11-12] MEDS ORDERED: methylPREDNISolone SOD SUC 125 MG/2 ML VIAL IV STA (23:59)
[2021-11-13] MEDS ORDERED: HydrOXYzine PAMOATE 25 MG CAPSULE PO STA (00:03)
[2021-11-13] MEDS ORDERED: GLUCAGON 1 MG VIAL IM PRN (01:14)
[2021-11-13] MEDS ORDERED: ACETAMINOPHEN 325 MG TABLET PO PRN (01:14)
[2021-11-13] MEDS ORDERED: hydrALAZINE 20 MG/1 ML VIAL IV PRN (01:14)
[2021-11-13] MEDS ORDERED: guaiFENesin/DM ER 600-30 MG TABLET PO PRN (01:14)
[2021-11-13] MEDS ORDERED: DEXTROSE 10% 250 ML BAG IV PRN (01:20)
[2021-11-13] MEDS: HEPARIN 5,000 UNIT/1 ML VIAL SUBCUT SCH ×2 (01:36→14:03)
[2021-11-13] MEDS: LEVOFLOXACIN INJ 750 MG/150 ML PREMIX IV SCH (01:36)
[2021-11-13 01:57] LABS: Arterial Base Excess iSTAT 1 MMOL/L (-2.5-2.5); Arterial Bicarbonate iSTAT 24.6 MMOL/L (20-26); Arterial O2 Saturation iSTAT 90 % (95-100); Arterial PCO2 iSTAT 37 MM HG (35-48); Arterial PO2 iSTAT 56 MM HG (80-95); Arterial Total CO2 iSTAT 26 MMO/L (23-27); Arterial pH iSTAT 7.434 (7.35-7.45)
[2021-11-13] MEDS: ZALEPLON 5 MG CAPSULE PO PRN ×2 (02:12→21:26)
[2021-11-13] MEDS: diphenhydrAMINE CAP 25 MG CAPSULE PO PRN ×2 (02:12→21:26)
[2021-11-13] MEDS ORDERED: cloNIDine 0.1 MG TABLET PO SCH (02:37)
[2021-11-13] MEDS: clonazePAM 0.5 MG TABLET PO SCH ×3 (02:47→20:16)
[2021-11-13] MEDS: methylPREDNISolone SOD SUC 125 MG/2 ML VIAL IV SCH ×4 (05:25→23:17)
[2021-11-13 05:50] LABS: Basophils % 0.3 % (0.0-0.8); Hematocrit 34.6 VOL% (35.7-47.0); Immature Granulocytes % 1.9 %; Immature Granulocytes Absolute 0.13 #; Lymphocytes # 0.6 10*3/uL (1.4-4.0); Lymphocytes % 9.1 % (21.3-54.2); Mean Corpuscular HGB Conc 34.7 GM/DL (32-36); Mean Corpuscular Volume 102.1 FL (87-102); Mean Platelet Volume 9.7 FL (9.6-12.0); Monocytes # 0.2 10*3/uL (0.11-0.8); Monocytes % 3.1 % (1.7-12.7); Neutrophils % 85.6 % (38.7-73.9); Platelet Count 198 T/CUMM (130-400); Red Blood Count 3.39 MC/CUMM (3.8-5.5); Red Cell Distribution Width 12.7 % (9.3-17.3); White Blood Count 6.7 T/CUMM (4-12)
[2021-11-13 06:09] LABS: Osmolality,Calculated 263.5 MOS/KG (273-304); Potassium 4.2 MMOL/L (3.5-5.1)
[2021-11-13] MEDS: ALBUTEROL/IPRATROPIUM 3 ML NEB RESP TX SCH ×3 (07:15→19:05)
[2021-11-13] MEDS: PANTOPRAZOLE 40 MG TABLET PO SCH (08:35)
[2021-11-13] MEDS: ONDANSETRON 4 MG/2 ML VIAL IV PRN ×3 (10:16→20:17)
[2021-11-13] MEDS: ROSUVASTATIN 20 MG TABLET PO SCH (12:47)
[2021-11-13] MEDS: CLOPIDOGREL 75 MG TABLET PO SCH (12:48)
[2021-11-13] MEDS: carvediloL 6.25 MG TABLET PO SCH (12:48)
[2021-11-14] MEDS: LEVOFLOXACIN INJ 750 MG/150 ML PREMIX IV SCH (01:11)
[2021-11-14] MEDS: HEPARIN 5,000 UNIT/1 ML VIAL SUBCUT SCH ×2 (01:11→14:19)
[2021-11-14 05:06] LABS: Basophils % 0.1 % (0.0-0.8); Hematocrit 32.9 VOL% (35.7-47.0); Hemoglobin 11.3 GM/DL (12.0-16.0); Immature Granulocytes % 2.2 %; Lymphocytes # 0.9 10*3/uL (1.4-4.0); Mean Corpuscular HGB Conc 34.3 GM/DL (32-36); Mean Corpuscular Volume 101.2 FL (87-102); Mean Platelet Volume 10.5 FL (9.6-12.0); Monocytes # 0.5 10*3/uL (0.11-0.8); Monocytes % 4.9 % (1.7-12.7); Neutrophils % 82.8 % (38.7-73.9); Platelet Count 234 T/CUMM (130-400); Red Blood Count 3.25 MC/CUMM (3.8-5.5); White Blood Count 9.1 T/CUMM (4-12)
[2021-11-14 05:20] LABS: Calcium 8.8 MG/DL (8.5-10.1); Osmolality,Calculated 250.6 MOS/KG (273-304); Potassium 4.1 MMOL/L (3.5-5.1)
[2021-11-14] MEDS: methylPREDNISolone SOD SUC 125 MG/2 ML VIAL IV SCH ×4 (06:26→23:26)
[2021-11-14] MEDS: ONDANSETRON 4 MG/2 ML VIAL IV PRN ×2 (06:37→20:09)
[2021-11-14] MEDS: ALBUTEROL/IPRATROPIUM 3 ML NEB RESP TX SCH ×4 (07:20→19:54)
[2021-11-14] MEDS: PANTOPRAZOLE 40 MG TABLET PO SCH (08:33)
[2021-11-14] MEDS: ROSUVASTATIN 20 MG TABLET PO SCH (08:33)
[2021-11-14] MEDS: clonazePAM 0.5 MG TABLET PO SCH ×2 (08:33→20:08)
[2021-11-14] MEDS: CLOPIDOGREL 75 MG TABLET PO SCH (08:33)
[2021-11-14] MEDS: carvediloL 6.25 MG TABLET PO SCH (08:38)
[2021-11-14] MEDS: lisinopriL 20 MG TABLET PO SCH (10:35)
[2021-11-14] MEDS: cefTRIAXone 1,000 MG in SODIUM CHLORIDE 0.9% 100 ML IV SCH (10:36)
[2021-11-14] MEDS: DOXYCYCLINE HYCLATE INJ 100 MG in SODIUM CHLORIDE 0.9% 100 ML IV SCH ×2 (11:33→21:34)
[2021-11-14 11:50] LABS: Calcium 8.7 MG/DL (8.5-10.1); Osmolality,Calculated 248.8 MOS/KG (273-304); Potassium 4.1 MMOL/L (3.5-5.1)
[2021-11-14] MEDS: NICOTINE 21 MG/24 HR PATCH TRANSDERM PRN (15:34)
[2021-11-14] MEDS ORDERED: SODIUM CHLORIDE 0.9% 1,000 ML IV SCH (17:30)
[2021-11-14] MEDS: diphenhydrAMINE CAP 25 MG CAPSULE PO PRN (21:38)
[2021-11-14] MEDS: ZALEPLON 5 MG CAPSULE PO PRN (21:38)
[2021-11-15] MEDS: HEPARIN 5,000 UNIT/1 ML VIAL SUBCUT SCH ×2 (01:07→13:54)
[2021-11-15] MEDS: ALBUTEROL/IPRATROPIUM 3 ML NEB RESP TX SCH ×4 (01:29→19:30)
[2021-11-15 05:42] LABS: Basophils # 0.1 10*3/uL (0.0-0.2); Basophils % 0.6 % (0.0-0.8); Hematocrit 33.9 VOL% (35.7-47.0); Immature Granulocytes % 4.6 %; Immature Granulocytes Absolute 0.46 #; Lymphocytes # 0.9 10*3/uL (1.4-4.0); Mean Corpuscular HGB Conc 35.4 GM/DL (32-36); Mean Corpuscular Volume 98.5 FL (87-102); Monocytes # 0.8 10*3/uL (0.11-0.8); Monocytes % 8.3 % (1.7-12.7); Neutrophils % 77.5 % (38.7-73.9); Platelet Count 255 T/CUMM (130-400); Red Blood Count 3.44 MC/CUMM (3.8-5.5); Red Cell Distribution Width 11.9 % (9.3-17.3); White Blood Count 9.9 T/CUMM (4-12)
[2021-11-15] MEDS: ONDANSETRON 4 MG/2 ML VIAL IV PRN (05:53)
[2021-11-15] MEDS: methylPREDNISolone SOD SUC 125 MG/2 ML VIAL IV SCH ×3 (05:54→21:21)
[2021-11-15 06:09] LABS: Calcium 8.9 MG/DL (8.5-10.1); Osmolality,Calculated 261.7 MOS/KG (273-304); Potassium 3.6 MMOL/L (3.5-5.1)
[2021-11-15] MEDS: CLOPIDOGREL 75 MG TABLET PO SCH (08:28)
[2021-11-15] MEDS: PANTOPRAZOLE 40 MG TABLET PO SCH (08:28)
[2021-11-15] MEDS: ROSUVASTATIN 20 MG TABLET PO SCH (08:28)
[2021-11-15] MEDS: lisinopriL 20 MG TABLET PO SCH (08:28)
[2021-11-15] MEDS: clonazePAM 0.5 MG TABLET PO SCH ×2 (08:28→21:37)
[2021-11-15] MEDS: cefTRIAXone 1,000 MG in SODIUM CHLORIDE 0.9% 100 ML IV SCH (09:49)
[2021-11-15] MEDS: DOXYCYCLINE HYCLATE INJ 100 MG in SODIUM CHLORIDE 0.9% 100 ML IV SCH ×2 (10:27→21:38)
[2021-11-15] MEDS: DOCUSATE SODIUM 100 MG CAPSULE PO PRN (13:54)
[2021-11-15] MEDS: BUDESONIDE/FORMOTEROL 80-4.5 INHALER 6.9 GM INH SCH (13:54)
[2021-11-15] MEDS: ZALEPLON 5 MG CAPSULE PO PRN (21:37)
[2021-11-16] MEDS: ALBUTEROL/IPRATROPIUM 3 ML NEB RESP TX SCH ×4 (01:26→20:07)
[2021-11-16] MEDS: HEPARIN 5,000 UNIT/1 ML VIAL SUBCUT SCH (02:12)
[2021-11-16] MEDS: ONDANSETRON 4 MG/2 ML VIAL IV PRN ×2 (02:14→18:03)
[2021-11-16 04:49] LABS: Basophils # 0.1 10*3/uL (0.0-0.2); Basophils % 0.6 % (0.0-0.8); Hematocrit 36.2 VOL% (35.7-47.0); Hemoglobin 12.5 GM/DL (12.0-16.0); Immature Granulocytes % 4.8 %; Immature Granulocytes Absolute 0.72 #; Lymphocytes # 0.9 10*3/uL (1.4-4.0); Lymphocytes % 6.2 % (21.3-54.2); Mean Corpuscular HGB Conc 34.5 GM/DL (32-36); Mean Corpuscular Volume 101.1 FL (87-102); Mean Platelet Volume 9.9 FL (9.6-12.0); Monocytes # 1.1 10*3/uL (0.11-0.8); Monocytes % 7.6 % (1.7-12.7); Neutrophils % 80.8 % (38.7-73.9); Platelet Count 265 T/CUMM (130-400); Red Blood Count 3.58 MC/CUMM (3.8-5.5); Red Cell Distribution Width 12.3 % (9.3-17.3); White Blood Count 14.9 T/CUMM (4-12)
[2021-11-16] MEDS: methylPREDNISolone SOD SUC 125 MG/2 ML VIAL IV SCH (05:01)
[2021-11-16 05:02] LABS: Calcium 8.8 MG/DL (8.5-10.1); Osmolality,Calculated 268.4 MOS/KG (273-304); Potassium 3.9 MMOL/L (3.5-5.1)
[2021-11-16 05:09] LABS: Lymphocytes 4 % (20-55); Platelet Estimate Adequate; Total Cells Counted 100
[2021-11-16] MEDS: ROSUVASTATIN 20 MG TABLET PO SCH (08:47)
[2021-11-16] MEDS: clonazePAM 0.5 MG TABLET PO SCH ×2 (08:47→20:42)
[2021-11-16] MEDS: lisinopriL 20 MG TABLET PO SCH (08:48)
[2021-11-16] MEDS: PANTOPRAZOLE 40 MG TABLET PO SCH (08:48)
[2021-11-16] MEDS: BUDESONIDE/FORMOTEROL 80-4.5 INHALER 6.9 GM INH SCH (08:49)
[2021-11-16] MEDS: NICOTINE 21 MG/24 HR PATCH TRANSDERM PRN (08:51)
[2021-11-16] MEDS: CLOPIDOGREL 75 MG TABLET PO SCH (08:51)
[2021-11-16] MEDS: DOCUSATE SODIUM 100 MG CAPSULE PO PRN ×2 (08:51→18:01)
[2021-11-16] MEDS: cefTRIAXone 1,000 MG in SODIUM CHLORIDE 0.9% 100 ML IV SCH (10:31)
[2021-11-16] MEDS: DOXYCYCLINE HYCLATE INJ 100 MG in SODIUM CHLORIDE 0.9% 100 ML IV SCH ×2 (11:03→23:42)
[2021-11-16] MEDS: ZALEPLON 5 MG CAPSULE PO PRN (20:42)
[2021-11-16] MEDS: diphenhydrAMINE CAP 25 MG CAPSULE PO PRN (23:46)
[2021-11-17] MEDS: ALBUTEROL/IPRATROPIUM 3 ML NEB RESP TX SCH ×3 (00:55→13:13)
[2021-11-17] MEDS ORDERED: DOXYCYCLINE HYCLATE 100 MG CAPSULE PO SCH (08:00)
[2021-11-17] MEDS: clonazePAM 0.5 MG TABLET PO SCH (08:01)
[2021-11-17] MEDS: CLOPIDOGREL 75 MG TABLET PO SCH (08:01)
[2021-11-17] MEDS: ROSUVASTATIN 20 MG TABLET PO SCH (08:01)
[2021-11-17] MEDS: PANTOPRAZOLE 40 MG TABLET PO SCH (08:01)
[2021-11-17] MEDS: lisinopriL 20 MG TABLET PO SCH (08:01)
[2021-11-17] MEDS: BUDESONIDE/FORMOTEROL 80-4.5 INHALER 6.9 GM INH SCH (08:06)
[2021-11-17] MEDS ORDERED: predniSONE 20 MG TABLET PO SCH (09:00)
[2021-11-17] MEDS: cefTRIAXone 1,000 MG in SODIUM CHLORIDE 0.9% 100 ML IV SCH (11:13)
[2021-11-17 11:59] VITALS: BP 116/57
[2021-11-17] MEDS ORDERED: CEFUROXIME 500 MG TABLET PO SCH (21:00)
== END 2021-11-17 15:23 | disposition home or self-care (01) | DRG 140 ==
LOC: N.EDINP 21:20 → N.ED 21:20 → SUATTDRO 11-13 01:14 → N.3E 11-13 01:25 → SUATTDRO 11-14 10:14
PROVIDERS: ADMIT Internal Medicine; ATTEND Internal Medicine

== ENCOUNTER 2022-02-16 05:37 | Inpatient (IN) ==
[2022-02-16] MEDS ORDERED: ASPIRIN 325 MG TABLET PO STA (05:44)
[2022-02-16] MEDS ORDERED: NITROGLYCERIN 2% OINT 1 INCH/GM PACK TOP STA (05:44)
[2022-02-16] MEDS ORDERED: ONDANSETRON 4 MG/2 ML VIAL IV STA ×2 (05:44→06:32)
[2022-02-16] MEDS ORDERED: MORPHINE 2 MG/1 ML SYRINGE ONE (05:48)
[2022-02-16] MEDS ORDERED: MORPHINE 2 MG/1 ML SYRINGE IV STA (05:50)
[2022-02-16 05:55] LABS: Basophils % 0.3 % (0.0-0.8); Eosinophils % 0.4 % (0.00-10.9); Hematocrit 34.2 VOL% (35.7-47.0); Hemoglobin 12.5 GM/DL (12.0-16.0); Immature Granulocytes % 1.3 %; Immature Granulocytes Absolute 0.15 #; Lymphocytes # 2.1 10*3/uL (1.4-4.0); Lymphocytes % 19.1 % (21.3-54.2); Mean Corpuscular HGB Conc 36.5 GM/DL (32-36); Mean Corpuscular Volume 98.3 FL (87-102); Mean Platelet Volume 9.2 FL (9.6-12.0); Monocytes % 8.8 % (1.7-12.7); Neutrophils % 70.1 % (38.7-73.9); Platelet Count 256 T/CUMM (130-400); Red Blood Count 3.48 MC/CUMM (3.8-5.5); Red Cell Distribution Width 13.2 % (9.3-17.3); White Blood Count 11.1 T/CUMM (4-12)
[2022-02-16 06:06] LABS: Mucus,Urine Occasional /LPF (Occasional); RBC,Urine 4 /HPF (0-4); Squamous Epithelial Cell,Urine Occasional /HPF (0-10)
[2022-02-16 06:07] LABS: Bilirubin,Urine Negative (Negative); Blood, Urine Small mg/dL (Negative); Glucose,Urine (UA) Negative (Negative); Ketones,Urine Negative (Negative); Nitrite,Urine Negative (Negative); Protein,Urine Negative (Negative); Urine Appearance Clear (Clear); Urine Color Yellow (Yellow); Urine Specific Gravity 1.015 (1.001-1.035); Urine Urobilinogen 0.2 eU/dL (<2.0)
[2022-02-16 06:14] LABS: Albumin 3.8 G/DL (3.4-5.0); Bilirubin,Total 0.5 MG/DL (0.20-1.00); Calcium 8.9 MG/DL (8.5-10.1); Osmolality,Calculated 229.9 MOS/KG (273-304); Total Protein 6.6 G/DL (6.4-8.2)
[2022-02-16] MEDS ORDERED: SODIUM CHLORIDE 0.9% 1,000 ML IV SCH ×2 (06:30→12:00)
[2022-02-16] MEDS ORDERED: fentaNYL 100 MCG/2 ML VIAL IV STA (06:32)
[2022-02-16] MEDS ORDERED: HYDROmorphone 1 MG/1 ML SYRINGE IV STA (06:32)
[2022-02-16 07:19] LABS: Free T4 (Free Thyroxine) 1.05 NG/DL (0.76-1.46); Thyroid Stimulating Hormone 1.31 uIU/ml (0.358-3.74)
[2022-02-16] MEDS ORDERED: MAGNESIUM SULF RIDER 2 GM/50 ML PREMIX IV STA (08:12)
[2022-02-16] MEDS ORDERED: LORazepam 2 MG/1 ML VIAL IV PRN (08:26)
[2022-02-16 08:27] LABS: Risk Ratio 2.76; VLDL Cholesterol 42.6 MG/DL
[2022-02-16] MEDS ORDERED: SODIUM CHLORIDE 3% INJ 50 ML IV ONE (08:29)
[2022-02-16] MEDS ORDERED: DOCUSATE SODIUM 100 MG CAPSULE PO PRN (08:41)
[2022-02-16] MEDS ORDERED: ALBUTEROL 2.5 MG/3 ML NEB RESP TX PRN (08:41)
[2022-02-16] MEDS ORDERED: DEXTROSE 10% 250 ML BAG IV PRN (08:41)
[2022-02-16] MEDS ORDERED: ALUMINUM/MAGNES/SIMETH MAX STR 30 ML UDCUP PO PRN (08:41)
[2022-02-16] MEDS ORDERED: CALCIUM CARBONATE CHEW 500 MG TABLET PO PRN (08:41)
[2022-02-16] MEDS ORDERED: LACTULOSE 20 GM/30 ML UDCUP PO PRN (08:41)
[2022-02-16] MEDS ORDERED: ONDANSETRON 4 MG/2 ML VIAL IV PRN (08:41)
[2022-02-16] MEDS ORDERED: GLUCAGON 1 MG VIAL IM PRN (08:41)
[2022-02-16] MEDS: MORPHINE 2 MG/1 ML SYRINGE IV PRN ×3 (08:52→21:11)
[2022-02-16] MEDS: ENOXAPARIN 40 MG/0.4 ML SYRINGE SUBCUT SCH (09:15)
[2022-02-16] MEDS: ROSUVASTATIN 20 MG TABLET PO SCH (09:15)
[2022-02-16] MEDS: CLOPIDOGREL 75 MG TABLET PO SCH (09:15)
[2022-02-16] MEDS: PANTOPRAZOLE 40 MG TABLET PO SCH (09:15)
[2022-02-16] MEDS: THIAMINE 100 MG TABLET PO SCH (09:15)
[2022-02-16 09:29] LABS: % Iron Saturation 28.4 % (18-50); Folate 10.41 NG/ML (5.38-24.0)
[2022-02-16] MEDS ORDERED: clonazePAM 0.5 MG TABLET PO ONE (09:53)
[2022-02-16] MEDS: INSULIN LISPRO 100 UNIT/ML SUBCUT SCH ×3 (12:08→20:09)
[2022-02-16] MEDS: BUDESONIDE/FORMOTEROL 80-4.5 INHALER 6.9 GM INH SCH (18:14)
[2022-02-16 18:42] LABS: Calcium 8.5 MG/DL (8.5-10.1); Potassium 4.1 MMOL/L (3.5-5.1)
[2022-02-16 18:43] LABS: Osmolality,Calculated 232.6 MOS/KG (273-304)
[2022-02-16 20:27] LABS: Osmolality,Calculated 233.6 MOS/KG (273-304); Potassium 4.3 MMOL/L (3.5-5.1)
[2022-02-16] MEDS: FOLIC ACID 1 MG TABLET PO SCH (20:35)
[2022-02-16] MEDS: clonazePAM 0.5 MG TABLET PO PRN (20:35)
[2022-02-16] MEDS: SODIUM CHLORIDE 0.9% 1,000 ML IV SCH (20:46)
[2022-02-17 01:00] LABS: Calcium 7.9 MG/DL (8.5-10.1); Osmolality,Calculated 238.2 MOS/KG (273-304); Potassium 4.1 MMOL/L (3.5-5.1)
[2022-02-17] MEDS: MORPHINE 2 MG/1 ML SYRINGE IV PRN ×2 (02:58→10:29)
[2022-02-17 05:30] LABS: Basophils % 0.3 % (0.0-0.8); Eosinophils # 0.1 10*3/uL (0.0-0.87); Eosinophils % 1.2 % (0.00-10.9); Hemoglobin 10.8 GM/DL (12.0-16.0); Immature Granulocytes % 1.5 %; Immature Granulocytes Absolute 0.09 #; Lymphocytes # 1.2 10*3/uL (1.4-4.0); Lymphocytes % 19.7 % (21.3-54.2); Mean Corpuscular HGB Conc 34.8 GM/DL (32-36); Mean Platelet Volume 9.4 FL (9.6-12.0); Monocytes # 0.8 10*3/uL (0.11-0.8); Monocytes % 13.7 % (1.7-12.7); Neutrophils % 63.6 % (38.7-73.9); Platelet Count 196 T/CUMM (130-400); Red Blood Count 3.04 MC/CUMM (3.8-5.5); Red Cell Distribution Width 13.2 % (9.3-17.3); White Blood Count 5.9 T/CUMM (4-12)
[2022-02-17 07:22] LABS: Hepatitis B Surface Ag Quant < 0.10 Index; Hepatitis B Surface Ag Result Non-Reactive (NonReactive); Hepatitis C Virus Ab Quant < 0.02 Index; Hepatitis C Virus Ab Result Non-Reactive (NonReactive)
[2022-02-17] MEDS: INSULIN LISPRO 100 UNIT/ML SUBCUT SCH ×4 (08:00→22:41)
[2022-02-17] MEDS: ESTRADIOL 1 MG TABLET PO SCH (09:57)
[2022-02-17] MEDS: predniSONE 20 MG TABLET PO SCH (09:57)
[2022-02-17] MEDS: ROSUVASTATIN 20 MG TABLET PO SCH (09:58)
[2022-02-17] MEDS: ASPIRIN CHEW 81 MG TABLET PO SCH (09:58)
[2022-02-17] MEDS: PANTOPRAZOLE 40 MG TABLET PO SCH (09:58)
[2022-02-17] MEDS: ENOXAPARIN 40 MG/0.4 ML SYRINGE SUBCUT SCH (09:58)
[2022-02-17] MEDS: BUDESONIDE/FORMOTEROL 80-4.5 INHALER 6.9 GM INH SCH (09:58)
[2022-02-17] MEDS: CLOPIDOGREL 75 MG TABLET PO SCH (09:58)
[2022-02-17] MEDS: SODIUM CHLORIDE/POTASSIUM CHLORIDE TABLET PO SCH ×4 (09:58→22:41)
[2022-02-17] MEDS: THIAMINE 100 MG TABLET PO SCH (09:58)
[2022-02-17] MEDS: SODIUM CHLORIDE 0.9% 1,000 ML IV SCH ×2 (09:59→20:36)
[2022-02-17] MEDS: clonazePAM 0.5 MG TABLET PO PRN ×2 (10:29→22:40)
[2022-02-17] MEDS: ALBUTEROL 2.5 MG/3 ML NEB RESP TX SCH ×2 (13:20→19:45)
[2022-02-17] MEDS: cefTRIAXone 2,000 MG in SODIUM CHLORIDE 0.9% 100 ML IV SCH (22:30)
[2022-02-17] MEDS: FOLIC ACID 1 MG TABLET PO SCH (22:40)
[2022-02-17] MEDS: buPROPion SR 100 MG TABLET PO SCH (22:40)
[2022-02-18] MEDS: ALBUTEROL 2.5 MG/3 ML NEB RESP TX SCH ×4 (00:33→19:11)
[2022-02-18] MEDS: ACETAMINOPHEN 325 MG TABLET PO PRN (02:44)
[2022-02-18 06:02] LABS: Basophils % 0.1 % (0.0-0.8); Hematocrit 28.6 VOL% (35.7-47.0); Immature Granulocytes % 0.7 %; Immature Granulocytes Absolute 0.07 #; Lymphocytes # 0.5 10*3/uL (1.4-4.0); Lymphocytes % 5.2 % (21.3-54.2); Mean Platelet Volume 9.7 FL (9.6-12.0); Monocytes # 0.3 10*3/uL (0.11-0.8); Monocytes % 2.6 % (1.7-12.7); Neutrophils % 91.4 % (38.7-73.9); Platelet Count 180 T/CUMM (130-400); Red Blood Count 2.75 MC/CUMM (3.8-5.5); Red Cell Distribution Width 13.3 % (9.3-17.3); White Blood Count 9.9 T/CUMM (4-12)
[2022-02-18 06:17] LABS: Calcium 8.3 MG/DL (8.5-10.1); Osmolality,Calculated 249.4 MOS/KG (273-304); Potassium 3.8 MMOL/L (3.5-5.1)
[2022-02-18 06:32] LABS: Band Neutrophils 6 % (0-10); Eosinophils 1 % (0-10); Lymphocytes 6 % (20-55); Total Cells Counted 100
[2022-02-18 06:33] LABS: Macrocytosis Slight; Stomatocytes Slight
[2022-02-18 06:34] LABS: Platelet Estimate Adequate
[2022-02-18] MEDS: SODIUM CHLORIDE 0.9% 1,000 ML IV SCH (07:14)
[2022-02-18] MEDS: INSULIN LISPRO 100 UNIT/ML SUBCUT SCH ×4 (08:06→21:19)
[2022-02-18] MEDS: ESTRADIOL 1 MG TABLET PO SCH (09:20)
[2022-02-18] MEDS: NICOTINE 21 MG/24 HR PATCH TRANSDERM SCH (09:20)
[2022-02-18] MEDS: SODIUM CHLORIDE/POTASSIUM CHLORIDE TABLET PO SCH ×4 (09:20→21:17)
[2022-02-18] MEDS: ASPIRIN CHEW 81 MG TABLET PO SCH (09:20)
[2022-02-18] MEDS: ROSUVASTATIN 20 MG TABLET PO SCH (09:20)
[2022-02-18] MEDS: THIAMINE 100 MG TABLET PO SCH (09:21)
[2022-02-18] MEDS: CLOPIDOGREL 75 MG TABLET PO SCH (09:21)
[2022-02-18] MEDS: PANTOPRAZOLE 40 MG TABLET PO SCH (09:21)
[2022-02-18] MEDS: predniSONE 20 MG TABLET PO SCH (09:21)
[2022-02-18] MEDS: clonazePAM 0.5 MG TABLET PO PRN ×2 (09:21→21:18)
[2022-02-18] MEDS: buPROPion SR 100 MG TABLET PO SCH ×2 (09:21→21:17)
[2022-02-18] MEDS: ENOXAPARIN 40 MG/0.4 ML SYRINGE SUBCUT SCH (09:21)
[2022-02-18] MEDS: BUDESONIDE/FORMOTEROL 80-4.5 INHALER 6.9 GM INH SCH ×2 (09:22→21:18)
[2022-02-18] MEDS: AZITHROMYCIN INJ 500 MG in SODIUM CHLORIDE 0.9% 250 ML IV SCH (10:59)
[2022-02-18] MEDS: MORPHINE 2 MG/1 ML SYRINGE IV PRN ×3 (12:50→22:31)
[2022-02-18] MEDS ORDERED: OXYMETAZOLINE 0.05% NASAL SPRAY 15 ML BOTTLE BOTH NARES PRN (13:33)
[2022-02-18] MEDS: chlordiazePOXIDE 25 MG CAPSULE PO SCH ×2 (16:18→21:17)
[2022-02-18] MEDS: FOLIC ACID 1 MG TABLET PO SCH (21:18)
[2022-02-18] MEDS: cefTRIAXone 2,000 MG in SODIUM CHLORIDE 0.9% 100 ML IV SCH (21:30)
[2022-02-19] MEDS: SODIUM CHLORIDE 0.9% 1,000 ML IV SCH ×4 (01:00→22:07)
[2022-02-19] MEDS: ALBUTEROL 2.5 MG/3 ML NEB RESP TX SCH ×4 (02:45→19:38)
[2022-02-19] MEDS: MORPHINE 2 MG/1 ML SYRINGE IV PRN ×4 (05:17→22:45)
[2022-02-19 06:16] LABS: Basophils % 0.3 % (0.0-0.8); Eosinophils % 0.1 % (0.00-10.9); Hematocrit 25.9 VOL% (35.7-47.0); Hemoglobin 8.8 GM/DL (12.0-16.0); Immature Granulocytes % 0.9 %; Immature Granulocytes Absolute 0.07 #; Lymphocytes # 0.9 10*3/uL (1.4-4.0); Lymphocytes % 11.6 % (21.3-54.2); Mean Corpuscular Volume 106.1 FL (87-102); Mean Platelet Volume 9.8 FL (9.6-12.0); Monocytes # 0.5 10*3/uL (0.11-0.8); Monocytes % 6.5 % (1.7-12.7); Neutrophils % 80.6 % (38.7-73.9); Platelet Count 155 T/CUMM (130-400); Red Blood Count 2.44 MC/CUMM (3.8-5.5); Red Cell Distribution Width 13.7 % (9.3-17.3); White Blood Count 7.4 T/CUMM (4-12)
[2022-02-19 06:16] LABS: Calcium 8.4 MG/DL (8.5-10.1); Osmolality,Calculated 256.8 MOS/KG (273-304); Potassium 3.2 MMOL/L (3.5-5.1)
[2022-02-19] MEDS: predniSONE 20 MG TABLET PO SCH (09:25)
[2022-02-19] MEDS: CLOPIDOGREL 75 MG TABLET PO SCH (09:25)
[2022-02-19] MEDS: ASPIRIN CHEW 81 MG TABLET PO SCH (09:25)
[2022-02-19] MEDS: chlordiazePOXIDE 25 MG CAPSULE PO SCH ×3 (09:25→22:04)
[2022-02-19] MEDS: buPROPion SR 100 MG TABLET PO SCH ×2 (09:25→22:06)
[2022-02-19] MEDS: PANTOPRAZOLE 40 MG TABLET PO SCH (09:25)
[2022-02-19] MEDS: ISOSORBIDE MONONITRATE 30 MG TABLET PO SCH (09:25)
[2022-02-19] MEDS: NICOTINE 21 MG/24 HR PATCH TRANSDERM SCH (09:25)
[2022-02-19] MEDS: ENOXAPARIN 40 MG/0.4 ML SYRINGE SUBCUT SCH (09:26)
[2022-02-19] MEDS: THIAMINE 100 MG TABLET PO SCH (09:26)
[2022-02-19] MEDS: ESTRADIOL 1 MG TABLET PO SCH (09:26)
[2022-02-19] MEDS: ROSUVASTATIN 20 MG TABLET PO SCH (09:26)
[2022-02-19] MEDS: SODIUM CHLORIDE/POTASSIUM CHLORIDE TABLET PO SCH ×4 (09:27→22:04)
[2022-02-19] MEDS: clonazePAM 0.5 MG TABLET PO PRN ×2 (09:29→22:03)
[2022-02-19] MEDS: BUDESONIDE/FORMOTEROL 80-4.5 INHALER 6.9 GM INH SCH ×2 (09:33→22:07)
[2022-02-19] MEDS ORDERED: POTASSIUM CHLORIDE 20 MEQ TABLET PO ONE (11:40)
[2022-02-19] MEDS: INSULIN LISPRO 100 UNIT/ML SUBCUT SCH ×4 (12:11→22:04)
[2022-02-19] MEDS: AZITHROMYCIN INJ 500 MG in SODIUM CHLORIDE 0.9% 250 ML IV SCH (12:56)
[2022-02-19] MEDS: FOLIC ACID 1 MG TABLET PO SCH (22:03)
[2022-02-19] MEDS: cefTRIAXone 2,000 MG in SODIUM CHLORIDE 0.9% 100 ML IV SCH (22:04)
[2022-02-20] MEDS: ALBUTEROL 2.5 MG/3 ML NEB RESP TX SCH ×4 (00:14→20:05)
[2022-02-20] MEDS: MORPHINE 2 MG/1 ML SYRINGE IV PRN ×5 (04:15→22:23)
[2022-02-20 05:41] LABS: Basophils % 0.3 % (0.0-0.8); Eosinophils % 0.5 % (0.00-10.9); Hematocrit 26.7 VOL% (35.7-47.0); Hemoglobin 8.8 GM/DL (12.0-16.0); Immature Granulocytes % 1.4 %; Immature Granulocytes Absolute 0.09 #; Lymphocytes # 1.2 10*3/uL (1.4-4.0); Lymphocytes % 17.9 % (21.3-54.2); Mean Corpuscular Volume 108.5 FL (87-102); Mean Platelet Volume 9.8 FL (9.6-12.0); Monocytes # 0.7 10*3/uL (0.11-0.8); Monocytes % 11.4 % (1.7-12.7); Neutrophils % 68.5 % (38.7-73.9); Platelet Count 171 T/CUMM (130-400); Red Blood Count 2.46 MC/CUMM (3.8-5.5); Red Cell Distribution Width 13.7 % (9.3-17.3); White Blood Count 6.5 T/CUMM (4-12)
[2022-02-20 06:02] LABS: Calcium 8.6 MG/DL (8.5-10.1); Osmolality,Calculated 262.4 MOS/KG (273-304); Potassium 4.1 MMOL/L (3.5-5.1)
[2022-02-20] MEDS: EZETIMIBE 10 MG TABLET PO SCH (08:46)
[2022-02-20] MEDS: ROSUVASTATIN 20 MG TABLET PO SCH (08:46)
[2022-02-20] MEDS: THIAMINE 100 MG TABLET PO SCH (08:46)
[2022-02-20] MEDS: CLOPIDOGREL 75 MG TABLET PO SCH (08:46)
[2022-02-20] MEDS: ENOXAPARIN 40 MG/0.4 ML SYRINGE SUBCUT SCH (08:46)
[2022-02-20] MEDS: chlordiazePOXIDE 25 MG CAPSULE PO SCH ×3 (08:46→20:55)
[2022-02-20] MEDS: SODIUM CHLORIDE/POTASSIUM CHLORIDE TABLET PO SCH ×4 (08:46→20:55)
[2022-02-20] MEDS: ISOSORBIDE MONONITRATE 30 MG TABLET PO SCH (08:46)
[2022-02-20] MEDS: predniSONE 20 MG TABLET PO SCH (08:46)
[2022-02-20] MEDS: ASPIRIN CHEW 81 MG TABLET PO SCH (08:47)
[2022-02-20] MEDS: ESTRADIOL 1 MG TABLET PO SCH (08:47)
[2022-02-20] MEDS: buPROPion SR 100 MG TABLET PO SCH ×2 (08:47→20:55)
[2022-02-20] MEDS: NICOTINE 21 MG/24 HR PATCH TRANSDERM SCH (08:47)
[2022-02-20] MEDS: PANTOPRAZOLE 40 MG TABLET PO SCH (08:47)
[2022-02-20] MEDS: INSULIN LISPRO 100 UNIT/ML SUBCUT SCH ×4 (08:51→20:56)
[2022-02-20] MEDS: clonazePAM 0.5 MG TABLET PO PRN ×2 (09:21→20:55)
[2022-02-20] MEDS: BUDESONIDE/FORMOTEROL 80-4.5 INHALER 6.9 GM INH SCH ×2 (09:22→20:55)
[2022-02-20] MEDS: AZITHROMYCIN INJ 500 MG in SODIUM CHLORIDE 0.9% 250 ML IV SCH (11:46)
[2022-02-20] MEDS: SODIUM CHLORIDE 0.9% 1,000 ML IV SCH ×2 (13:52→23:29)
[2022-02-20] MEDS: DULoxetine 30 MG CAPSULE PO SCH (20:55)
[2022-02-20] MEDS: FOLIC ACID 1 MG TABLET PO SCH (20:56)
[2022-02-20] MEDS: cefTRIAXone 2,000 MG in SODIUM CHLORIDE 0.9% 100 ML IV SCH (21:30)
[2022-02-21] MEDS: ALBUTEROL 2.5 MG/3 ML NEB RESP TX SCH ×4 (00:33→19:45)
[2022-02-21] MEDS: MORPHINE 2 MG/1 ML SYRINGE IV PRN ×4 (04:07→21:04)
[2022-02-21 04:53] LABS: Basophils % 0.7 % (0.0-0.8); Eosinophils % 0.5 % (0.00-10.9); Hematocrit 27.1 VOL% (35.7-47.0); Hemoglobin 8.8 GM/DL (12.0-16.0); Immature Granulocytes % 3.7 %; Immature Granulocytes Absolute 0.22 #; Lymphocytes # 1.4 10*3/uL (1.4-4.0); Lymphocytes % 23.9 % (21.3-54.2); Mean Corpuscular HGB Conc 32.5 GM/DL (32-36); Mean Corpuscular Volume 109.3 FL (87-102); Mean Platelet Volume 9.8 FL (9.6-12.0); Monocytes # 0.7 10*3/uL (0.11-0.8); Monocytes % 12.3 % (1.7-12.7); Neutrophils % 58.9 % (38.7-73.9); Platelet Count 194 T/CUMM (130-400); Red Blood Count 2.48 MC/CUMM (3.8-5.5); Red Cell Distribution Width 13.5 % (9.3-17.3); White Blood Count 5.9 T/CUMM (4-12)
[2022-02-21 05:07] LABS: Calcium 8.8 MG/DL (8.5-10.1); Osmolality,Calculated 263.2 MOS/KG (273-304); Potassium 4.1 MMOL/L (3.5-5.1)
[2022-02-21] MEDS: SODIUM CHLORIDE 0.9% 1,000 ML IV SCH ×3 (05:51→17:09)
[2022-02-21] MEDS: INSULIN LISPRO 100 UNIT/ML SUBCUT SCH ×4 (07:47→20:59)
[2022-02-21] MEDS: ENOXAPARIN 40 MG/0.4 ML SYRINGE SUBCUT SCH (08:47)
[2022-02-21] MEDS: NICOTINE 21 MG/24 HR PATCH TRANSDERM SCH (08:47)
[2022-02-21] MEDS: clonazePAM 0.5 MG TABLET PO PRN ×2 (08:48→20:58)
[2022-02-21] MEDS: chlordiazePOXIDE 25 MG CAPSULE PO SCH ×3 (08:48→20:58)
[2022-02-21] MEDS: EZETIMIBE 10 MG TABLET PO SCH (08:48)
[2022-02-21] MEDS: ROSUVASTATIN 20 MG TABLET PO SCH (08:48)
[2022-02-21] MEDS: buPROPion SR 100 MG TABLET PO SCH ×2 (08:48→22:07)
[2022-02-21] MEDS: ISOSORBIDE MONONITRATE 30 MG TABLET PO SCH (08:48)
[2022-02-21] MEDS: THIAMINE 100 MG TABLET PO SCH (08:48)
[2022-02-21] MEDS: SODIUM CHLORIDE/POTASSIUM CHLORIDE TABLET PO SCH ×2 (08:48→20:58)
[2022-02-21] MEDS: ASPIRIN CHEW 81 MG TABLET PO SCH (08:49)
[2022-02-21] MEDS: predniSONE 20 MG TABLET PO SCH (08:49)
[2022-02-21] MEDS: BUDESONIDE/FORMOTEROL 80-4.5 INHALER 6.9 GM INH SCH ×2 (08:49→21:04)
[2022-02-21] MEDS: CLOPIDOGREL 75 MG TABLET PO SCH (08:49)
[2022-02-21] MEDS: PANTOPRAZOLE 40 MG TABLET PO SCH (08:49)
[2022-02-21] MEDS: ESTRADIOL 1 MG TABLET PO SCH (08:56)
[2022-02-21] MEDS ORDERED: POLYETHYLENE GLYCOL POWDER 17 GM PACK PO PRN (10:34)
[2022-02-21] MEDS ORDERED: lisinopriL 5 MG TABLET PO SCH (10:38)
[2022-02-21] MEDS: AZITHROMYCIN INJ 500 MG in SODIUM CHLORIDE 0.9% 250 ML IV SCH (11:56)
[2022-02-21] MEDS: DULoxetine 30 MG CAPSULE PO SCH (20:58)
[2022-02-21] MEDS: FOLIC ACID 1 MG TABLET PO SCH (20:58)
[2022-02-21] MEDS: cefTRIAXone 2,000 MG in SODIUM CHLORIDE 0.9% 100 ML IV SCH (22:08)
[2022-02-22] MEDS: ALBUTEROL 2.5 MG/3 ML NEB RESP TX SCH ×4 (01:52→20:00)
[2022-02-22] MEDS: MORPHINE 2 MG/1 ML SYRINGE IV PRN ×4 (03:58→21:46)
[2022-02-22 06:19] LABS: Basophils # 0.1 10*3/uL (0.0-0.2); Basophils % 0.8 % (0.0-0.8); Eosinophils % 0.1 % (0.00-10.9); Hematocrit 29.1 VOL% (35.7-47.0); Hemoglobin 9.2 GM/DL (12.0-16.0); Immature Granulocytes % 5.2 %; Immature Granulocytes Absolute 0.38 #; Lymphocytes # 2.1 10*3/uL (1.4-4.0); Lymphocytes % 28.9 % (21.3-54.2); Mean Corpuscular HGB Conc 31.6 GM/DL (32-36); Mean Corpuscular Volume 109.8 FL (87-102); Mean Platelet Volume 9.7 FL (9.6-12.0); Monocytes % 13.4 % (1.7-12.7); Neutrophils % 51.6 % (38.7-73.9); Platelet Count 235 T/CUMM (130-400); Red Blood Count 2.65 MC/CUMM (3.8-5.5); Red Cell Distribution Width 13.7 % (9.3-17.3); White Blood Count 7.3 T/CUMM (4-12)
[2022-02-22 06:37] LABS: Calcium 8.8 MG/DL (8.5-10.1); Osmolality,Calculated 266.1 MOS/KG (273-304)
[2022-02-22 06:42] LABS: Band Neutrophils 3 % (0-10); Lymphocytes 24 % (20-55); Total Cells Counted 100
[2022-02-22 06:43] LABS: Macrocytosis Slight; Platelet Estimate Normal
[2022-02-22] MEDS: INSULIN LISPRO 100 UNIT/ML SUBCUT SCH ×4 (08:05→21:46)
[2022-02-22] MEDS: SODIUM CHLORIDE 0.9% 1,000 ML IV SCH (09:19)
[2022-02-22] MEDS: ISOSORBIDE MONONITRATE 30 MG TABLET PO SCH (09:20)
[2022-02-22] MEDS: ENOXAPARIN 40 MG/0.4 ML SYRINGE SUBCUT SCH (09:21)
[2022-02-22] MEDS: clonazePAM 0.5 MG TABLET PO PRN ×2 (09:21→21:48)
[2022-02-22] MEDS: NICOTINE 21 MG/24 HR PATCH TRANSDERM SCH (09:22)
[2022-02-22] MEDS: EZETIMIBE 10 MG TABLET PO SCH (09:22)
[2022-02-22] MEDS: chlordiazePOXIDE 25 MG CAPSULE PO SCH ×3 (09:22→21:46)
[2022-02-22] MEDS: SODIUM CHLORIDE/POTASSIUM CHLORIDE TABLET PO SCH ×2 (09:22→21:46)
[2022-02-22] MEDS: buPROPion SR 100 MG TABLET PO SCH ×2 (09:23→21:47)
[2022-02-22] MEDS: CLOPIDOGREL 75 MG TABLET PO SCH (09:23)
[2022-02-22] MEDS: THIAMINE 100 MG TABLET PO SCH (09:23)
[2022-02-22] MEDS: lisinopriL 10 MG TABLET PO SCH (09:23)
[2022-02-22] MEDS: ESTRADIOL 1 MG TABLET PO SCH (09:23)
[2022-02-22] MEDS: predniSONE 20 MG TABLET PO SCH (09:23)
[2022-02-22] MEDS: ASPIRIN CHEW 81 MG TABLET PO SCH (09:23)
[2022-02-22] MEDS: BUDESONIDE/FORMOTEROL 80-4.5 INHALER 6.9 GM INH SCH ×2 (09:24→21:47)
[2022-02-22] MEDS: ROSUVASTATIN 20 MG TABLET PO SCH (09:24)
[2022-02-22] MEDS: PANTOPRAZOLE 40 MG TABLET PO SCH (09:24)
[2022-02-22] MEDS: AZITHROMYCIN INJ 500 MG in SODIUM CHLORIDE 0.9% 250 ML IV SCH (10:54)
[2022-02-22] MEDS ORDERED: FUROSEMIDE 40 MG/4 ML VIAL IV ONE (14:19)
[2022-02-22] MEDS: FOLIC ACID 1 MG TABLET PO SCH (21:46)
[2022-02-22] MEDS: GABAPENTIN 300 MG CAPSULE PO SCH (21:46)
[2022-02-22] MEDS: DULoxetine 30 MG CAPSULE PO SCH (21:46)
[2022-02-22] MEDS: cefTRIAXone 2,000 MG in SODIUM CHLORIDE 0.9% 100 ML IV SCH (23:27)
[2022-02-23] MEDS: MORPHINE 2 MG/1 ML SYRINGE IV PRN ×2 (03:44→14:50)
[2022-02-23 06:02] LABS: Basophils # 0.1 10*3/uL (0.0-0.2); Basophils % 0.8 % (0.0-0.8); Eosinophils % 0.4 % (0.00-10.9); Hematocrit 32.1 VOL% (35.7-47.0); Hemoglobin 10.3 GM/DL (12.0-16.0); Immature Granulocytes % 5.7 %; Immature Granulocytes Absolute 0.42 #; Lymphocytes # 1.9 10*3/uL (1.4-4.0); Lymphocytes % 26.1 % (21.3-54.2); Mean Corpuscular HGB Conc 32.1 GM/DL (32-36); Mean Corpuscular Volume 109.6 FL (87-102); Mean Platelet Volume 10.5 FL (9.6-12.0); Monocytes # 0.9 10*3/uL (0.11-0.8); Monocytes % 12.2 % (1.7-12.7); Neutrophils % 54.8 % (38.7-73.9); Platelet Count 202 T/CUMM (130-400); Red Blood Count 2.93 MC/CUMM (3.8-5.5); Red Cell Distribution Width 13.8 % (9.3-17.3); White Blood Count 7.4 T/CUMM (4-12)
[2022-02-23 06:12] LABS: Calcium 9.3 MG/DL (8.5-10.1); Osmolality,Calculated 260.5 MOS/KG (273-304); Potassium 3.9 MMOL/L (3.5-5.1)
[2022-02-23 06:15] LABS: Calcium 9.3 MG/DL (8.5-10.1); Osmolality,Calculated 264.2 MOS/KG (273-304)
[2022-02-23 06:29] LABS: Lymphocytes 33 % (20-55); Platelet Estimate Adequate; Total Cells Counted 100
[2022-02-23] MEDS: ALBUTEROL 2.5 MG/3 ML NEB RESP TX SCH ×4 (07:03→19:22)
[2022-02-23] MEDS: INSULIN LISPRO 100 UNIT/ML SUBCUT SCH ×4 (08:16→22:08)
[2022-02-23] MEDS: EZETIMIBE 10 MG TABLET PO SCH (09:42)
[2022-02-23] MEDS: PANTOPRAZOLE 40 MG TABLET PO SCH (09:42)
[2022-02-23] MEDS: chlordiazePOXIDE 25 MG CAPSULE PO SCH ×2 (09:42→14:54)
[2022-02-23] MEDS: buPROPion SR 100 MG TABLET PO SCH ×2 (09:42→22:10)
[2022-02-23] MEDS: ROSUVASTATIN 20 MG TABLET PO SCH (09:42)
[2022-02-23] MEDS: ISOSORBIDE MONONITRATE 30 MG TABLET PO SCH (09:42)
[2022-02-23] MEDS: SODIUM CHLORIDE/POTASSIUM CHLORIDE TABLET PO SCH ×2 (09:42→22:07)
[2022-02-23] MEDS: ASPIRIN CHEW 81 MG TABLET PO SCH (09:42)
[2022-02-23] MEDS: ENOXAPARIN 40 MG/0.4 ML SYRINGE SUBCUT SCH (09:43)
[2022-02-23] MEDS: predniSONE 20 MG TABLET PO SCH (09:43)
[2022-02-23] MEDS: CLOPIDOGREL 75 MG TABLET PO SCH (09:43)
[2022-02-23] MEDS: lisinopriL 10 MG TABLET PO SCH (09:43)
[2022-02-23] MEDS: THIAMINE 100 MG TABLET PO SCH (09:43)
[2022-02-23] MEDS: GABAPENTIN 300 MG CAPSULE PO SCH ×3 (09:43→22:07)
[2022-02-23] MEDS: NICOTINE 21 MG/24 HR PATCH TRANSDERM SCH (09:44)
[2022-02-23] MEDS: BUDESONIDE/FORMOTEROL 80-4.5 INHALER 6.9 GM INH SCH ×2 (09:45→22:08)
[2022-02-23] MEDS: ESTRADIOL 1 MG TABLET PO SCH (09:56)
[2022-02-23] MEDS: clonazePAM 0.5 MG TABLET PO PRN ×2 (09:56→22:07)
[2022-02-23] MEDS: AZITHROMYCIN INJ 500 MG in SODIUM CHLORIDE 0.9% 250 ML IV SCH (11:51)
[2022-02-23] MEDS: cloNIDine 0.1 MG TABLET PO SCH (22:07)
[2022-02-23] MEDS: DULoxetine 30 MG CAPSULE PO SCH (22:07)
[2022-02-23] MEDS: FOLIC ACID 1 MG TABLET PO SCH (22:08)
[2022-02-23] MEDS: cefTRIAXone 2,000 MG in SODIUM CHLORIDE 0.9% 100 ML IV SCH (22:15)
[2022-02-24] MEDS: ALBUTEROL 2.5 MG/3 ML NEB RESP TX SCH ×2 (00:14→07:13)
[2022-02-24] MEDS: ACETAMINOPHEN 325 MG TABLET PO PRN (03:35)
[2022-02-24] MEDS: INSULIN LISPRO 100 UNIT/ML SUBCUT SCH ×4 (07:24→20:22)
[2022-02-24] MEDS: CLOPIDOGREL 75 MG TABLET PO SCH (10:09)
[2022-02-24] MEDS: ESTRADIOL 1 MG TABLET PO SCH (10:09)
[2022-02-24] MEDS: GABAPENTIN 300 MG CAPSULE PO SCH ×3 (10:10→20:21)
[2022-02-24] MEDS: PANTOPRAZOLE 40 MG TABLET PO SCH (10:10)
[2022-02-24] MEDS: buPROPion SR 100 MG TABLET PO SCH ×2 (10:11→20:21)
[2022-02-24] MEDS: predniSONE 20 MG TABLET PO SCH (10:11)
[2022-02-24] MEDS: cloNIDine 0.1 MG TABLET PO SCH ×2 (10:11→20:21)
[2022-02-24] MEDS: ASPIRIN CHEW 81 MG TABLET PO SCH (10:11)
[2022-02-24] MEDS: THIAMINE 100 MG TABLET PO SCH (10:12)
[2022-02-24] MEDS: EZETIMIBE 10 MG TABLET PO SCH (10:12)
[2022-02-24] MEDS: ROSUVASTATIN 20 MG TABLET PO SCH (10:12)
[2022-02-24] MEDS: SODIUM CHLORIDE/POTASSIUM CHLORIDE TABLET PO SCH ×2 (10:13→20:21)
[2022-02-24] MEDS: ISOSORBIDE MONONITRATE 30 MG TABLET PO SCH (10:13)
[2022-02-24] MEDS: BUDESONIDE/FORMOTEROL 160-4.5 INHALER 6 GM INH SCH ×2 (10:15→20:22)
[2022-02-24] MEDS: ENOXAPARIN 40 MG/0.4 ML SYRINGE SUBCUT SCH (10:17)
[2022-02-24] MEDS: clonazePAM 0.5 MG TABLET PO PRN ×2 (10:21→20:27)
[2022-02-24] MEDS: AZITHROMYCIN INJ 500 MG in SODIUM CHLORIDE 0.9% 250 ML IV SCH (13:16)
[2022-02-24] MEDS: NICOTINE 21 MG/24 HR PATCH TRANSDERM SCH (13:19)
[2022-02-24] MEDS: ALBUTEROL/IPRATROPIUM 3 ML NEB RESP TX SCH ×2 (13:45→19:47)
[2022-02-24] MEDS: MORPHINE 2 MG/1 ML SYRINGE IV PRN ×2 (15:39→20:22)
[2022-02-24] MEDS: FOLIC ACID 1 MG TABLET PO SCH (20:21)
[2022-02-24] MEDS: DULoxetine 30 MG CAPSULE PO SCH (20:21)
[2022-02-24] MEDS: cefTRIAXone 2,000 MG in SODIUM CHLORIDE 0.9% 100 ML IV SCH (22:58)
[2022-02-25] MEDS: ALBUTEROL/IPRATROPIUM 3 ML NEB RESP TX SCH ×2 (00:21→07:35)
[2022-02-25] MEDS: MORPHINE 2 MG/1 ML SYRINGE IV PRN ×2 (03:56→10:30)
[2022-02-25 05:01] LABS: Basophils # 0.1 10*3/uL (0.0-0.2); Basophils % 0.6 % (0.0-0.8); Eosinophils % 0.4 % (0.00-10.9); Hematocrit 30.9 VOL% (35.7-47.0); Hemoglobin 9.8 GM/DL (12.0-16.0); Immature Granulocytes % 5.7 %; Immature Granulocytes Absolute 0.51 #; Lymphocytes # 2.3 10*3/uL (1.4-4.0); Lymphocytes % 25.5 % (21.3-54.2); Mean Corpuscular HGB Conc 31.7 GM/DL (32-36); Mean Corpuscular Volume 111.2 FL (87-102); Mean Platelet Volume 9.3 FL (9.6-12.0); Monocytes # 0.7 10*3/uL (0.11-0.8); Monocytes % 8.3 % (1.7-12.7); Neutrophils % 59.5 % (38.7-73.9); Platelet Count 324 T/CUMM (130-400); Red Blood Count 2.78 MC/CUMM (3.8-5.5); Red Cell Distribution Width 14.3 % (9.3-17.3); White Blood Count 8.9 T/CUMM (4-12)
[2022-02-25 05:23] LABS: Band Neutrophils 1 % (0-10); Lymphocytes 30 % (20-55); Nucleated Red Blood Cells 1 /100 WBC (0-5); Platelet Estimate Adequate; Total Cells Counted 100
[2022-02-25 05:28] LABS: Alanine Aminotransferase 45 U/L (13-56); Albumin 2.9 G/DL (3.4-5.0); Alkaline Phosphatase 91 U/L (45-117); Aspartate Amino Transferase 22 U/L (0-37); Bilirubin,Total < 0.39 MG/DL (0.20-1.00); Blood Urea Nitrogen 9 MG/DL (7-18); Calcium 9.1 MG/DL (8.5-10.1); Carbon Dioxide 33 MMOL/L (21-32); Chloride 101 MMOL/L (98-107); Glucose 107 MG/DL (74-106); Osmolality,Calculated 273.7 MOS/KG (273-304); Potassium 3.7 MMOL/L (3.5-5.1); Sodium 138 MMOL/L (136-145); Total Protein 6.2 G/DL (6.4-8.2)
[2022-02-25] MEDS: PANTOPRAZOLE 40 MG TABLET PO SCH (10:21)
[2022-02-25] MEDS: INSULIN LISPRO 100 UNIT/ML SUBCUT SCH ×2 (10:21→11:55)
[2022-02-25] MEDS: NICOTINE 21 MG/24 HR PATCH TRANSDERM SCH (10:21)
[2022-02-25] MEDS: GABAPENTIN 300 MG CAPSULE PO SCH ×2 (10:22→12:49)
[2022-02-25] MEDS: ISOSORBIDE MONONITRATE 30 MG TABLET PO SCH (10:22)
[2022-02-25] MEDS: clonazePAM 0.5 MG TABLET PO PRN (10:22)
[2022-02-25] MEDS: cloNIDine 0.1 MG TABLET PO SCH (10:23)
[2022-02-25] MEDS: ENOXAPARIN 40 MG/0.4 ML SYRINGE SUBCUT SCH (10:23)
[2022-02-25] MEDS: CLOPIDOGREL 75 MG TABLET PO SCH (10:23)
[2022-02-25] MEDS: EZETIMIBE 10 MG TABLET PO SCH (10:23)
[2022-02-25] MEDS: ROSUVASTATIN 20 MG TABLET PO SCH (10:23)
[2022-02-25] MEDS: predniSONE 20 MG TABLET PO SCH (10:23)
[2022-02-25] MEDS: THIAMINE 100 MG TABLET PO SCH (10:23)
[2022-02-25] MEDS: ASPIRIN CHEW 81 MG TABLET PO SCH (10:23)
[2022-02-25] MEDS: SODIUM CHLORIDE/POTASSIUM CHLORIDE TABLET PO SCH (10:23)
[2022-02-25] MEDS: buPROPion SR 100 MG TABLET PO SCH (10:23)
[2022-02-25] MEDS: ESTRADIOL 1 MG TABLET PO SCH (10:23)
[2022-02-25] MEDS: BUDESONIDE/FORMOTEROL 160-4.5 INHALER 6 GM INH SCH (10:24)
[2022-02-25] MEDS: AZITHROMYCIN INJ 500 MG in SODIUM CHLORIDE 0.9% 250 ML IV SCH (10:34)
[2022-02-25 12:59] VITALS: BP 115/69
== END 2022-02-25 14:08 | disposition home or self-care (01) | DRG 426 ==
LOC: EDBD → EDUNIT# → N.ED 05:37 → SUATTDRO 08:09 → N.EDINP 08:09 → N.TELES 17:29
PROVIDERS: ADMIT Internal Medicine; ATTEND Family Medicine

== ENCOUNTER 2022-06-14 07:29 | Observation (INO) ==
[2022-06-14] MEDS ORDERED: SODIUM CHLORIDE 0.9% 500 ML IV STA (08:20)
[2022-06-14] MEDS ORDERED: ALBUTEROL/IPRATROPIUM 3 ML NEB RESP TX STA (08:25)
[2022-06-14 08:29] LABS: Basophils % 0.2 % (0.0-0.8); Eosinophils % 0.2 % (0.00-10.9); Hematocrit 44.2 VOL% (35.7-47.0); Hemoglobin 15.6 GM/DL (12.0-16.0); Immature Granulocytes % 1.3 %; Immature Granulocytes Absolute 0.12 #; Lymphocytes # 1.2 10*3/uL (1.4-4.0); Lymphocytes % 12.7 % (21.3-54.2); Mean Corpuscular HGB Conc 35.3 GM/DL (32-36); Mean Corpuscular Volume 96.9 FL (87-102); Mean Platelet Volume 9.5 FL (9.6-12.0); Monocytes # 0.5 10*3/uL (0.11-0.8); Monocytes % 5.8 % (1.7-12.7); Neutrophils % 79.8 % (38.7-73.9); Platelet Count 287 T/CUMM (130-400); Red Blood Count 4.56 MC/CUMM (3.8-5.5); Red Cell Distribution Width 13.8 % (9.3-17.3); White Blood Count 9.4 T/CUMM (4-12)
[2022-06-14 08:45] LABS: Albumin 4.4 G/DL (3.4-5.0); Bilirubin,Total 0.4 MG/DL (0.20-1.00); Calcium 10.3 MG/DL (8.5-10.1); Osmolality,Calculated 250.4 MOS/KG (273-304); Potassium 4.4 MMOL/L (3.5-5.1); Total Protein 7.8 G/DL (6.4-8.2)
[2022-06-14] MEDS ORDERED: methylPREDNISolone SOD SUC 125 MG/2 ML VIAL IV STA (09:15)
[2022-06-14 09:25] LABS: Bacteria,Urine Occasional /HPF (Few); Mucus,Urine Few /LPF (Occasional); RBC,Urine 6 /HPF (0-4); Squamous Epithelial Cell,Urine Moderate /HPF (0-10); Urine Color Yellow (Yellow)
[2022-06-14 09:26] LABS: Bilirubin,Urine Negative (Negative); Blood, Urine Moderate mg/dL (Negative); Glucose,Urine (UA) Negative (Negative); Ketones,Urine Trace mg/dL (Negative); Nitrite,Urine Negative (Negative); Protein,Urine Negative (Negative); Urine Appearance Slightly Hazy (Clear); Urine Specific Gravity 1.025 (1.001-1.035); Urine Urobilinogen 0.2 eU/dL (<2.0)
[2022-06-14] MEDS ORDERED: ONDANSETRON 4 MG/2 ML VIAL IV STA (09:29)
[2022-06-14] MEDS ORDERED: ONDANSETRON 4 MG/2 ML VIAL ONE (09:30)
[2022-06-14] MEDS ORDERED: ONDANSETRON 4 MG/2 ML VIAL IV PRN (10:08)
[2022-06-14 10:11] LABS: Calcium 10.1 MG/DL (8.5-10.1); Osmolality,Calculated 252.2 MOS/KG (273-304); Potassium 4.4 MMOL/L (3.5-5.1)
[2022-06-14] MEDS ORDERED: MAGNESIUM SULF RIDER 4 GM/100 ML PREMIX IV ONE (10:18)
[2022-06-14] MEDS ORDERED: DIAZEPAM 5 MG TABLET PO STA (10:40)
[2022-06-14] MEDS: ENOXAPARIN 40 MG/0.4 ML SYRINGE SUBCUT SCH (10:50)
[2022-06-14] MEDS: NICOTINE 21 MG/24 HR PATCH TRANSDERM SCH (10:51)
[2022-06-14] MEDS: ALBUTEROL/IPRATROPIUM 3 ML NEB RESP TX SCH ×4 (10:53→23:40)
[2022-06-14] MEDS ORDERED: KETOROLAC 30 MG/1 ML VIAL IV STA (12:35)
[2022-06-14] MEDS: GABAPENTIN 300 MG CAPSULE PO SCH ×2 (17:26→20:11)
[2022-06-14] MEDS: SODIUM CHLORIDE 0.9% 1,000 ML IV SCH (17:26)
[2022-06-14] MEDS ORDERED: KETOROLAC 15 MG/1 ML VIAL IV ONE (19:53)
[2022-06-14] MEDS: DOXYCYCLINE HYCLATE 100 MG CAPSULE PO SCH (20:11)
[2022-06-14] MEDS: guaiFENesin/DM ER 600-30 MG TABLET PO SCH (20:11)
[2022-06-14] MEDS: clonazePAM 0.5 MG TABLET PO SCH (20:11)
[2022-06-14] MEDS: methylPREDNISolone SOD SUC 40 MG/1 ML VIAL IV SCH (20:13)
[2022-06-14] MEDS: BUDESONIDE/FORMOTEROL 160-4.5 INHALER 6 GM INH SCH (20:54)
[2022-06-15] MEDS: ALBUTEROL/IPRATROPIUM 3 ML NEB RESP TX SCH ×6 (03:18→23:03)
[2022-06-15 05:31] LABS: Basophils % 0.2 % (0.0-0.8); Hematocrit 38.8 VOL% (35.7-47.0); Hemoglobin 13.5 GM/DL (12.0-16.0); Immature Granulocytes Absolute 0.12 #; Lymphocytes # 0.7 10*3/uL (1.4-4.0); Mean Corpuscular HGB Conc 34.8 GM/DL (32-36); Mean Corpuscular Volume 97.7 FL (87-102); Mean Platelet Volume 9.4 FL (9.6-12.0); Monocytes # 0.5 10*3/uL (0.11-0.8); Monocytes % 4.2 % (1.7-12.7); Neutrophils % 88.6 % (38.7-73.9); Platelet Count 240 T/CUMM (130-400); Red Blood Count 3.97 MC/CUMM (3.8-5.5); Red Cell Distribution Width 14.4 % (9.3-17.3); White Blood Count 11.7 T/CUMM (4-12)
[2022-06-15 05:54] LABS: Calcium 8.9 MG/DL (8.5-10.1); Osmolality,Calculated 258.9 MOS/KG (273-304)
[2022-06-15] MEDS: SODIUM CHLORIDE 0.9% 1,000 ML IV SCH ×3 (08:41→20:28)
[2022-06-15] MEDS: ASPIRIN CHEW 81 MG TABLET PO SCH (08:41)
[2022-06-15] MEDS: amLODIPine 5 MG TABLET PO SCH (08:42)
[2022-06-15] MEDS: clonazePAM 0.5 MG TABLET PO SCH ×2 (08:42→20:12)
[2022-06-15] MEDS: NICOTINE 21 MG/24 HR PATCH TRANSDERM SCH (08:42)
[2022-06-15] MEDS: GABAPENTIN 300 MG CAPSULE PO SCH ×4 (08:42→20:12)
[2022-06-15] MEDS: methylPREDNISolone SOD SUC 40 MG/1 ML VIAL IV SCH ×2 (08:42→20:11)
[2022-06-15] MEDS: guaiFENesin/DM ER 600-30 MG TABLET PO SCH ×2 (08:42→20:12)
[2022-06-15] MEDS: PANTOPRAZOLE 40 MG TABLET PO SCH (08:42)
[2022-06-15] MEDS: BUDESONIDE/FORMOTEROL 160-4.5 INHALER 6 GM INH SCH ×2 (08:43→20:13)
[2022-06-15] MEDS: DOXYCYCLINE HYCLATE 100 MG CAPSULE PO SCH ×2 (08:43→20:12)
[2022-06-15] MEDS: ENOXAPARIN 40 MG/0.4 ML SYRINGE SUBCUT SCH (09:33)
[2022-06-15] MEDS: KETOROLAC 15 MG/1 ML VIAL IV SCH ×2 (15:19→20:11)
[2022-06-16] MEDS: KETOROLAC 15 MG/1 ML VIAL IV SCH ×2 (03:00→09:21)
[2022-06-16] MEDS: ALBUTEROL/IPRATROPIUM 3 ML NEB RESP TX SCH ×3 (03:31→11:19)
[2022-06-16 05:04] LABS: Basophils % 0.3 % (0.0-0.8); Hematocrit 37.3 VOL% (35.7-47.0); Hemoglobin 12.4 GM/DL (12.0-16.0); Immature Granulocytes Absolute 0.16 #; Lymphocytes # 0.6 10*3/uL (1.4-4.0); Lymphocytes % 7.4 % (21.3-54.2); Mean Corpuscular HGB Conc 33.2 GM/DL (32-36); Mean Corpuscular Volume 101.9 FL (87-102); Mean Platelet Volume 9.7 FL (9.6-12.0); Monocytes # 0.5 10*3/uL (0.11-0.8); Monocytes % 5.7 % (1.7-12.7); Neutrophils % 84.6 % (38.7-73.9); Platelet Count 222 T/CUMM (130-400); Red Blood Count 3.66 MC/CUMM (3.8-5.5); Red Cell Distribution Width 14.9 % (9.3-17.3); White Blood Count 7.9 T/CUMM (4-12)
[2022-06-16] MEDS: methylPREDNISolone SOD SUC 40 MG/1 ML VIAL IV SCH (09:21)
[2022-06-16] MEDS: NICOTINE 21 MG/24 HR PATCH TRANSDERM SCH (09:22)
[2022-06-16] MEDS: clonazePAM 0.5 MG TABLET PO SCH (09:22)
[2022-06-16] MEDS: DOXYCYCLINE HYCLATE 100 MG CAPSULE PO SCH (09:22)
[2022-06-16] MEDS: GABAPENTIN 300 MG CAPSULE PO SCH (09:22)
[2022-06-16] MEDS: PANTOPRAZOLE 40 MG TABLET PO SCH (09:22)
[2022-06-16] MEDS: ASPIRIN CHEW 81 MG TABLET PO SCH (09:22)
[2022-06-16] MEDS: guaiFENesin/DM ER 600-30 MG TABLET PO SCH (09:22)
[2022-06-16] MEDS: amLODIPine 5 MG TABLET PO SCH (09:22)
[2022-06-16] MEDS: SODIUM CHLORIDE 0.9% 1,000 ML IV SCH (09:49)
[2022-06-16] MEDS: BUDESONIDE/FORMOTEROL 160-4.5 INHALER 6 GM INH SCH (09:59)
[2022-06-16] MEDS: ENOXAPARIN 40 MG/0.4 ML SYRINGE SUBCUT SCH (10:55)
[2022-06-16 13:00] VITALS: BP 152/77
== END 2022-06-16 13:55 | disposition home health service (06) ==
LOC: N.ED 07:29 → N.EDINP 07:29 → N.2W 16:52
PROVIDERS: ADMIT Family Medicine; ATTEND Family Medicine

== ENCOUNTER 2022-08-17 14:55 | Inpatient (IN) ==
[2022-08-17] MEDS ORDERED: ONDANSETRON 4 MG/2 ML VIAL IV ONE (15:35)
[2022-08-17] MEDS ORDERED: ALBUTEROL 2.5 MG/3 ML NEB RESP TX STA (15:35)
[2022-08-17] MEDS ORDERED: MORPHINE 2 MG/1 ML SYRINGE IV ONE (15:35)
[2022-08-17] MEDS ORDERED: methylPREDNISolone SOD SUC 125 MG/2 ML VIAL IV STA (15:35)
[2022-08-17] MEDS ORDERED: ALBUTEROL/IPRATROPIUM 3 ML NEB RESP TX STA (15:35)
[2022-08-17] MEDS ORDERED: ASPIRIN 325 MG TABLET PO STA (15:35)
[2022-08-17 15:42] LABS: Basophils # 0.1 10*3/uL (0.0-0.2); Basophils % 0.8 % (0.0-0.8); Eosinophils # 0.1 10*3/uL (0.0-0.87); Eosinophils % 1.1 % (0.00-10.9); Hemoglobin 15.1 GM/DL (12.0-16.0); Immature Granulocytes % 1.9 %; Immature Granulocytes Absolute 0.15 #; Lymphocytes # 1.9 10*3/uL (1.4-4.0); Lymphocytes % 23.2 % (21.3-54.2); Mean Corpuscular HGB Conc 34.3 GM/DL (32-36); Mean Corpuscular Volume 100.5 FL (87-102); Mean Platelet Volume 8.8 FL (9.6-12.0); Monocytes # 0.9 10*3/uL (0.11-0.8); Monocytes % 11.2 % (1.7-12.7); Neutrophils % 61.8 % (38.7-73.9); Platelet Count 245 T/CUMM (130-400); Red Blood Count 4.38 MC/CUMM (3.8-5.5); Red Cell Distribution Width 14.1 % (9.3-17.3); White Blood Count 7.97 T/CUMM (4-12)
[2022-08-17 15:51] LABS: INR 0.9; PT Patient Result 10.2 SECS (10.1-12.1)
[2022-08-17 15:56] LABS: Arterial Base Excess iSTAT 3 MMOL/L (-2.5-2.5); Arterial Bicarbonate iSTAT 27.6 MMOL/L (20-26); Arterial O2 Saturation iSTAT 94 % (95-100); Arterial PCO2 iSTAT 41 MM HG (35-48); Arterial PO2 iSTAT 68 MM HG (80-95); Arterial Total CO2 iSTAT 29 MMO/L (23-27); Arterial pH iSTAT 7.437 (7.35-7.45)
[2022-08-17 15:57] LABS: Mucus,Urine Occasional /LPF (Occasional); RBC,Urine 5 /HPF (0-4); Squamous Epithelial Cell,Urine Few /HPF (0-10)
[2022-08-17 15:58] LABS: Urine Appearance Clear (Clear); Urine Color Yellow (Yellow)
[2022-08-17 15:59] LABS: Bilirubin,Urine Negative (Negative); Blood, Urine Moderate mg/dL (Negative); Glucose,Urine (UA) Negative (Negative); Ketones,Urine Negative (Negative); Nitrite,Urine Negative (Negative); Protein,Urine Negative (Negative); Urine Urobilinogen 0.2 eU/dL (<2.0)
[2022-08-17] MEDS ORDERED: ALBUTEROL 1.25 MG/3 ML NEB RESP TX STA ×2 (15:59→16:00)
[2022-08-17 16:08] LABS: Barbiturates Screen,Urine Negative (Negative); Benzodiazepines Screen,Urine Negative (Negative); Cannabinoid Screen,Urine Negative (Negative); Opiate Screen,Urine Negative (Negative); Phencyclidine Screen,Urine Negative (Negative)
[2022-08-17 16:10] LABS: Alanine Aminotransferase 22 U/L (13-56); Albumin 3.8 G/DL (3.4-5.0); Alkaline Phosphatase 154 U/L (45-117); Aspartate Amino Transferase 20 U/L (0-37); Blood Urea Nitrogen 5 MG/DL (7-18); Calcium 9.1 MG/DL (8.5-10.1); Carbon Dioxide 28 MMOL/L (21-32); Chloride 94 MMOL/L (98-107); Glucose 110 MG/DL (74-106); Osmolality,Calculated 259.7 MOS/KG (273-304); Potassium 3.9 MMOL/L (3.5-5.1); Sodium 131 MMOL/L (136-145)
[2022-08-17] MEDS ORDERED: cefTRIAXone 1,000 MG in SODIUM CHLORIDE 0.9% 100 ML IV STA (16:59)
[2022-08-17] MEDS ORDERED: AZITHROMYCIN INJ 500 MG in SODIUM CHLORIDE 0.9% 250 ML IV STA (16:59)
[2022-08-17] MEDS ORDERED: hydrALAZINE 20 MG/1 ML VIAL IV PRN (17:25)
[2022-08-17] MEDS ORDERED: ACETAMINOPHEN 325 MG TABLET PO PRN (17:25)
[2022-08-17] MEDS ORDERED: NON-FORMULARY MEDICATION (Albuterol Sulfate [Ventolin Hfa] 90 mcg/actuation HFA aerosol in INH PRN (17:31)
[2022-08-17] MEDS: SODIUM CHLORIDE 0.9% 1,000 ML IV SCH (17:57)
[2022-08-17] MEDS: LEVOFLOXACIN INJ 500 MG/100 ML PREMIX IV SCH (18:15)
[2022-08-17] MEDS ORDERED: ALBUTEROL 2.5 MG/3 ML NEB RESP TX PRN (19:00)
[2022-08-17] MEDS ORDERED: ALBUTEROL/IPRATROPIUM 3 ML NEB RESP TX PRN (19:05)
[2022-08-17] MEDS: BUDESONIDE/FORMOTEROL 160-4.5 INHALER 6 GM INH SCH (20:13)
[2022-08-17] MEDS: FLUTICASONE/SALMETEROL 250-50 DISKUS 14 DOSE INH SCH (20:13)
[2022-08-17] MEDS: DULoxetine 30 MG CAPSULE PO SCH (20:13)
[2022-08-17] MEDS: guaiFENesin/DM ER 600-30 MG TABLET PO PRN (20:13)
[2022-08-17] MEDS: clonazePAM 0.5 MG TABLET PO SCH (20:13)
[2022-08-17] MEDS: GABAPENTIN 400 MG CAPSULE PO SCH (20:14)
[2022-08-17] MEDS: ENOXAPARIN 40 MG/0.4 ML SYRINGE SUBCUT SCH (20:15)
[2022-08-17] MEDS: cloNIDine 0.1 MG TABLET PO SCH (20:15)
[2022-08-17] MEDS: NICOTINE 21 MG/24 HR PATCH TRANSDERM SCH (20:46)
[2022-08-17] MEDS: ONDANSETRON 4 MG/2 ML VIAL IV PRN (20:49)
[2022-08-17] MEDS: ALBUTEROL 2.5 MG/3 ML NEB RESP TX SCH (22:51)
[2022-08-17] MEDS: methylPREDNISolone SOD SUC 40 MG/1 ML VIAL IV SCH (23:49)
[2022-08-18] MEDS: ALBUTEROL 2.5 MG/3 ML NEB RESP TX SCH ×4 (00:45→19:00)
[2022-08-18] MEDS: SODIUM CHLORIDE 0.9% 1,000 ML IV SCH ×2 (04:28→12:09)
[2022-08-18] MEDS: MORPHINE 2 MG/1 ML SYRINGE IV PRN ×2 (05:27→17:55)
[2022-08-18 05:56] LABS: Basophils % 0.5 % (0.0-0.8); Hematocrit 42.4 VOL% (35.7-47.0); Hemoglobin 14.5 GM/DL (12.0-16.0); Immature Granulocytes % 2.5 %; Immature Granulocytes Absolute 0.16 #; Lymphocytes # 0.7 10*3/uL (1.4-4.0); Lymphocytes % 10.6 % (21.3-54.2); Mean Corpuscular HGB Conc 34.2 GM/DL (32-36); Mean Corpuscular Volume 101.4 FL (87-102); Monocytes # 0.2 10*3/uL (0.11-0.8); Monocytes % 2.8 % (1.7-12.7); Neutrophils % 83.6 % (38.7-73.9); Platelet Count 212 T/CUMM (130-400); Red Blood Count 4.18 MC/CUMM (3.8-5.5); White Blood Count 6.41 T/CUMM (4-12)
[2022-08-18 06:20] LABS: Alanine Aminotransferase 21 U/L (13-56); Albumin 3.5 G/DL (3.4-5.0); Alkaline Phosphatase 140 U/L (45-117); Aspartate Amino Transferase 11 U/L (0-37); Bilirubin,Total < 0.39 MG/DL (0.20-1.00); Blood Urea Nitrogen 5 MG/DL (7-18); Calcium 8.8 MG/DL (8.5-10.1); Carbon Dioxide 27 MMOL/L (21-32); Chloride 97 MMOL/L (98-107); Cholesterol 261 MG/DL (50-200); Glucose 148 MG/DL (74-106); HDL Cholesterol 86 MG/DL (40-60); Osmolality,Calculated 263.5 MOS/KG (273-304); Potassium 4.1 MMOL/L (3.5-5.1); Risk Ratio 3.03; Sodium 132 MMOL/L (136-145); Thyroid Stimulating Hormone 0.229 uIU/ml (0.358-3.74); Triglycerides 223 MG/DL (2-150); VLDL Cholesterol 44.6 MG/DL
[2022-08-18] MEDS: MULTIVITAMIN (CENTRUM) TABLET PO SCH (08:24)
[2022-08-18] MEDS: ASPIRIN CHEW 81 MG TABLET PO SCH (08:24)
[2022-08-18] MEDS: FOLIC ACID 1 MG TABLET PO SCH (08:24)
[2022-08-18] MEDS: DULoxetine 30 MG CAPSULE PO SCH ×2 (08:24→21:30)
[2022-08-18] MEDS: FLUTICASONE/SALMETEROL 250-50 DISKUS 14 DOSE INH SCH ×2 (08:24→21:31)
[2022-08-18] MEDS: cloNIDine 0.1 MG TABLET PO SCH ×2 (08:24→21:30)
[2022-08-18] MEDS: THIAMINE 100 MG TABLET PO SCH (08:25)
[2022-08-18] MEDS: CLOPIDOGREL 75 MG TABLET PO SCH (08:25)
[2022-08-18] MEDS: BUDESONIDE/FORMOTEROL 160-4.5 INHALER 6 GM INH SCH ×2 (08:25→21:31)
[2022-08-18] MEDS: PANTOPRAZOLE 40 MG TABLET PO SCH (08:25)
[2022-08-18] MEDS: GABAPENTIN 400 MG CAPSULE PO SCH ×3 (08:25→21:30)
[2022-08-18] MEDS: amLODIPine 5 MG TABLET PO SCH (08:25)
[2022-08-18] MEDS: NICOTINE 21 MG/24 HR PATCH TRANSDERM SCH (08:25)
[2022-08-18] MEDS: clonazePAM 0.5 MG TABLET PO SCH ×2 (08:25→21:30)
[2022-08-18] MEDS: ONDANSETRON 4 MG/2 ML VIAL IV PRN ×2 (09:51→14:00)
[2022-08-18] MEDS: methylPREDNISolone SOD SUC 40 MG/1 ML VIAL IV SCH (12:07)
[2022-08-18] MEDS: ALBUTEROL/IPRATROPIUM 3 ML NEB RESP TX SCH ×2 (14:00→19:00)
[2022-08-18] MEDS: LEVOFLOXACIN INJ 500 MG/100 ML PREMIX IV SCH (18:10)
[2022-08-18] MEDS: POLYETHYLENE GLYCOL POWDER 17 GM PACK PO SCH (21:30)
[2022-08-18] MEDS: ENOXAPARIN 40 MG/0.4 ML SYRINGE SUBCUT SCH (21:32)
[2022-08-18] MEDS: metroNIDAZOLE INJ 500 MG/100 ML PREMIX IV SCH (21:33)
[2022-08-18] MEDS: guaiFENesin/DM ER 600-30 MG TABLET PO PRN (21:39)
[2022-08-19] MEDS: methylPREDNISolone SOD SUC 40 MG/1 ML VIAL IV SCH ×3 (00:23→23:58)
[2022-08-19] MEDS: ALBUTEROL/IPRATROPIUM 3 ML NEB RESP TX SCH ×4 (00:30→19:00)
[2022-08-19] MEDS: ONDANSETRON 4 MG/2 ML VIAL IV PRN ×2 (03:14→20:58)
[2022-08-19] MEDS: metroNIDAZOLE INJ 500 MG/100 ML PREMIX IV SCH ×3 (03:18→19:22)
[2022-08-19] MEDS: SODIUM CHLORIDE 0.9% 1,000 ML IV SCH ×4 (05:36→17:00)
[2022-08-19] MEDS: MORPHINE 2 MG/1 ML SYRINGE IV PRN ×3 (05:46→23:57)
[2022-08-19] MEDS: ALBUTEROL 2.5 MG/3 ML NEB RESP TX SCH (05:48)
[2022-08-19] MEDS: clonazePAM 0.5 MG TABLET PO SCH ×2 (09:07→20:52)
[2022-08-19] MEDS: THIAMINE 100 MG TABLET PO SCH (09:07)
[2022-08-19] MEDS: MULTIVITAMIN (CENTRUM) TABLET PO SCH (09:07)
[2022-08-19] MEDS: PANTOPRAZOLE 40 MG TABLET PO SCH (09:07)
[2022-08-19] MEDS: amLODIPine 5 MG TABLET PO SCH (09:07)
[2022-08-19] MEDS: ASPIRIN CHEW 81 MG TABLET PO SCH (09:07)
[2022-08-19] MEDS: POLYETHYLENE GLYCOL POWDER 17 GM PACK PO SCH (09:07)
[2022-08-19] MEDS: DULoxetine 30 MG CAPSULE PO SCH ×2 (09:07→20:53)
[2022-08-19] MEDS: FOLIC ACID 1 MG TABLET PO SCH (09:07)
[2022-08-19] MEDS: guaiFENesin/DM ER 600-30 MG TABLET PO PRN (09:07)
[2022-08-19] MEDS: cloNIDine 0.1 MG TABLET PO SCH ×2 (09:07→20:53)
[2022-08-19] MEDS: GABAPENTIN 400 MG CAPSULE PO SCH ×3 (09:07→20:53)
[2022-08-19] MEDS: CLOPIDOGREL 75 MG TABLET PO SCH (09:07)
[2022-08-19] MEDS: NICOTINE 21 MG/24 HR PATCH TRANSDERM SCH (09:08)
[2022-08-19] MEDS: BUDESONIDE/FORMOTEROL 160-4.5 INHALER 6 GM INH SCH ×2 (09:13→20:54)
[2022-08-19] MEDS: FLUTICASONE/SALMETEROL 250-50 DISKUS 14 DOSE INH SCH ×2 (09:13→20:54)
[2022-08-19 09:35] LABS: Basophils % 0.2 % (0.0-0.8); Hematocrit 38.6 VOL% (35.7-47.0); Hemoglobin 13.2 GM/DL (12.0-16.0); Immature Granulocytes % 1.1 %; Immature Granulocytes Absolute 0.14 #; Lymphocytes # 0.6 10*3/uL (1.4-4.0); Lymphocytes % 4.4 % (21.3-54.2); Mean Corpuscular HGB Conc 34.2 GM/DL (32-36); Mean Corpuscular Volume 103.8 FL (87-102); Mean Platelet Volume 9.1 FL (9.6-12.0); Monocytes # 0.5 10*3/uL (0.11-0.8); Monocytes % 3.8 % (1.7-12.7); Neutrophils % 90.5 % (38.7-73.9); Platelet Count 210 T/CUMM (130-400); Red Blood Count 3.72 MC/CUMM (3.8-5.5); Red Cell Distribution Width 14.4 % (9.3-17.3); White Blood Count 13.27 T/CUMM (4-12)
[2022-08-19 09:50] LABS: Alanine Aminotransferase 21 U/L (13-56); Albumin 3.4 G/DL (3.4-5.0); Alkaline Phosphatase 126 U/L (45-117); Aspartate Amino Transferase 15 U/L (0-37); Bilirubin,Total < 0.39 MG/DL (0.20-1.00); Blood Urea Nitrogen 5 MG/DL (7-18); Calcium 8.7 MG/DL (8.5-10.1); Carbon Dioxide 31 MMOL/L (21-32); Chloride 96 MMOL/L (98-107); Glucose 137 MG/DL (74-106); Osmolality,Calculated 264.4 MOS/KG (273-304); Potassium 3.7 MMOL/L (3.5-5.1); Sodium 133 MMOL/L (136-145); Total Protein 6.8 G/DL (6.4-8.2)
[2022-08-19 09:53] LABS: Lymphocytes 7 % (20-55); Total Cells Counted 100
[2022-08-19 09:54] LABS: Platelet Estimate Adequate
[2022-08-19] MEDS ORDERED: BISACODYL 5 MG TABLET PO ONE (10:08)
[2022-08-19] MEDS: DOCUSATE SODIUM 100 MG CAPSULE PO SCH ×2 (11:06→20:56)
[2022-08-19] MEDS: LEVOFLOXACIN INJ 500 MG/100 ML PREMIX IV SCH (17:00)
[2022-08-19] MEDS: ENOXAPARIN 40 MG/0.4 ML SYRINGE SUBCUT SCH (20:52)
[2022-08-20] MEDS: ALBUTEROL/IPRATROPIUM 3 ML NEB RESP TX SCH ×4 (00:32→19:20)
[2022-08-20] MEDS: SODIUM CHLORIDE 0.9% 1,000 ML IV SCH ×3 (03:53→19:29)
[2022-08-20] MEDS: metroNIDAZOLE INJ 500 MG/100 ML PREMIX IV SCH ×3 (03:55→19:18)
[2022-08-20] MEDS: ONDANSETRON 4 MG/2 ML VIAL IV PRN ×4 (04:43→23:27)
[2022-08-20 05:35] LABS: Basophils % 0.1 % (0.0-0.8); Hemoglobin 12.7 GM/DL (12.0-16.0); Immature Granulocytes % 1.3 %; Immature Granulocytes Absolute 0.18 #; Lymphocytes # 0.4 10*3/uL (1.4-4.0); Mean Corpuscular HGB Conc 33.4 GM/DL (32-36); Mean Corpuscular Volume 106.4 FL (87-102); Mean Platelet Volume 9.4 FL (9.6-12.0); Monocytes # 0.5 10*3/uL (0.11-0.8); Monocytes % 3.4 % (1.7-12.7); Neutrophils % 92.2 % (38.7-73.9); Platelet Count 205 T/CUMM (130-400); Red Blood Count 3.57 MC/CUMM (3.8-5.5); Red Cell Distribution Width 14.6 % (9.3-17.3); White Blood Count 13.49 T/CUMM (4-12)
[2022-08-20 05:54] LABS: Alanine Aminotransferase 19 U/L (13-56); Albumin 3.1 G/DL (3.4-5.0); Alkaline Phosphatase 116 U/L (45-117); Aspartate Amino Transferase 10 U/L (0-37); Bilirubin,Total < 0.39 MG/DL (0.20-1.00); Blood Urea Nitrogen 5 MG/DL (7-18); Calcium 8.6 MG/DL (8.5-10.1); Carbon Dioxide 29 MMOL/L (21-32); Chloride 99 MMOL/L (98-107); Glucose 161 MG/DL (74-106); Osmolality,Calculated 269.1 MOS/KG (273-304); Sodium 135 MMOL/L (136-145); Total Protein 6.4 G/DL (6.4-8.2)
[2022-08-20 06:03] LABS: Lymphocytes 4 % (20-55); Total Cells Counted 100
[2022-08-20 06:04] LABS: Platelet Estimate Normal
[2022-08-20] MEDS: MORPHINE 2 MG/1 ML SYRINGE IV PRN ×2 (08:38→18:02)
[2022-08-20] MEDS: DOCUSATE SODIUM 100 MG CAPSULE PO SCH ×2 (08:38→20:28)
[2022-08-20] MEDS: ASPIRIN CHEW 81 MG TABLET PO SCH (08:39)
[2022-08-20] MEDS: MULTIVITAMIN (CENTRUM) TABLET PO SCH (08:39)
[2022-08-20] MEDS: PANTOPRAZOLE 40 MG TABLET PO SCH (08:39)
[2022-08-20] MEDS: FLUTICASONE/SALMETEROL 250-50 DISKUS 14 DOSE INH SCH ×2 (08:39→20:29)
[2022-08-20] MEDS: POLYETHYLENE GLYCOL POWDER 17 GM PACK PO SCH (08:39)
[2022-08-20] MEDS: NICOTINE 21 MG/24 HR PATCH TRANSDERM SCH (08:39)
[2022-08-20] MEDS: FOLIC ACID 1 MG TABLET PO SCH (08:39)
[2022-08-20] MEDS: cloNIDine 0.1 MG TABLET PO SCH ×2 (08:39→20:28)
[2022-08-20] MEDS: clonazePAM 0.5 MG TABLET PO SCH ×2 (08:39→20:28)
[2022-08-20] MEDS: amLODIPine 5 MG TABLET PO SCH (08:39)
[2022-08-20] MEDS: CLOPIDOGREL 75 MG TABLET PO SCH (08:39)
[2022-08-20] MEDS: GABAPENTIN 400 MG CAPSULE PO SCH ×3 (08:39→20:28)
[2022-08-20] MEDS: THIAMINE 100 MG TABLET PO SCH (08:40)
[2022-08-20] MEDS ORDERED: BISACODYL 5 MG TABLET PO ONE (08:40)
[2022-08-20] MEDS ORDERED: BISACODYL 10 MG SUPP RECTAL ONE (08:40)
[2022-08-20] MEDS: BUDESONIDE/FORMOTEROL 160-4.5 INHALER 6 GM INH SCH ×2 (09:39→20:29)
[2022-08-20] MEDS: DULoxetine 30 MG CAPSULE PO SCH ×2 (09:39→20:28)
[2022-08-20] MEDS: methylPREDNISolone SOD SUC 40 MG/1 ML VIAL IV SCH ×2 (14:43→23:28)
[2022-08-20] MEDS: LEVOFLOXACIN INJ 500 MG/100 ML PREMIX IV SCH (18:03)
[2022-08-20] MEDS: ENOXAPARIN 40 MG/0.4 ML SYRINGE SUBCUT SCH (20:28)
[2022-08-21] MEDS: ALBUTEROL/IPRATROPIUM 3 ML NEB RESP TX SCH ×2 (00:55→07:19)
[2022-08-21] MEDS: MORPHINE 2 MG/1 ML SYRINGE IV PRN (02:05)
[2022-08-21] MEDS: ONDANSETRON 4 MG/2 ML VIAL IV PRN ×2 (03:18→07:36)
[2022-08-21] MEDS: metroNIDAZOLE INJ 500 MG/100 ML PREMIX IV SCH (03:19)
[2022-08-21] MEDS: SODIUM CHLORIDE 0.9% 1,000 ML IV SCH ×2 (04:09→11:15)
[2022-08-21 07:46] VITALS: BP 169/72
[2022-08-21] MEDS: THIAMINE 100 MG TABLET PO SCH (08:43)
[2022-08-21] MEDS: GABAPENTIN 400 MG CAPSULE PO SCH (08:43)
[2022-08-21] MEDS: cloNIDine 0.1 MG TABLET PO SCH (08:43)
[2022-08-21] MEDS: CLOPIDOGREL 75 MG TABLET PO SCH (08:43)
[2022-08-21] MEDS: ASPIRIN CHEW 81 MG TABLET PO SCH (08:43)
[2022-08-21] MEDS: MULTIVITAMIN (CENTRUM) TABLET PO SCH (08:43)
[2022-08-21] MEDS: PANTOPRAZOLE 40 MG TABLET PO SCH (08:44)
[2022-08-21] MEDS: clonazePAM 0.5 MG TABLET PO SCH (08:44)
[2022-08-21] MEDS: DULoxetine 30 MG CAPSULE PO SCH (08:44)
[2022-08-21] MEDS: FOLIC ACID 1 MG TABLET PO SCH (08:44)
[2022-08-21] MEDS: DOCUSATE SODIUM 100 MG CAPSULE PO SCH (08:44)
[2022-08-21] MEDS: FLUTICASONE/SALMETEROL 250-50 DISKUS 14 DOSE INH SCH (08:45)
[2022-08-21] MEDS: POLYETHYLENE GLYCOL POWDER 17 GM PACK PO SCH (08:45)
[2022-08-21] MEDS: BUDESONIDE/FORMOTEROL 160-4.5 INHALER 6 GM INH SCH (08:45)
[2022-08-21] MEDS: amLODIPine 5 MG TABLET PO SCH (08:45)
[2022-08-21] MEDS: NICOTINE 21 MG/24 HR PATCH TRANSDERM SCH (08:45)
== END 2022-08-21 11:30 | disposition home or self-care (01) | DRG 140 ==
LOC: N.ED 14:55 → N.EDINP 17:23 → N.3E 18:28
PROVIDERS: ADMIT Internal Medicine; ATTEND Internal Medicine